=== PATIENT | male | born 1945 | race Caucasian/White ===

== ENCOUNTER 2017-07-08 13:05 | Inpatient (IN) | payer MEDICARE, BC ==
[~2017-07-08] VITALS: Ht 175.3 cm; Wt 63.1 kg
[2017-07-08] VITALS (16 sets, daily range): BP systolic 82–121; BP diastolic 51–75; PULSE 84–110; RESP 18–42; TEMP 93.9–98; O2SAT 98–100
[2017-07-08] MEDS ORDERED: SODIUM CHLOR 0.9% 1000 ML INJ 1,000 ML IV ONE (13:30)
--- NOTE | 2017-07-08 13:32 | PD ---
HPI Chief Complaint: Respiratory Symptoms Time Seen by Provider: 13:19 Travel History International Travel<30 days: No Contact w/Intl Traveler<30days: No Traveled to known affect area: No History of Present Illness HPI Patient is a 71-year-old male presenting to emergency evaluation of shortness of breath. Patient states the symptoms started this morning. He denies any other complaints other than increased fatigue. He does have a history of metastatic prostate cancer for which he has received palliative radiation. EMS placed patient on 2 L of O2, he was satting at 100%. Patient is tachypneic and was initially hypotensive with a BP of 88 systolic. He has no other significant past medical history. He does take oxycodone for pain, he is on Eliquis prophylactically. PFSH Past Medical History Cancer: Yes (metastatic prostate cancer) Implanted Vascular Access Dvce: Yes (right chest port) Social History Alcohol Use: No Tobacco Use: No (remote history) Substance Use: No Allergies-Medications (Allergen,Severity, Reaction): Coded Allergies: No Known Allergies (Unverified , 07/08/17) Reported Meds & Prescriptions Reported Meds & Active Scripts Active Reported Ondansetron (Ondansetron HCl) 8 Mg Tab 4 Mg PO TID Eliquis (Apixaban) 5 Mg Tab 5 Mg PO DAILY Prednisone 10 Mg Tab 10 Mg PO DAILY Oxycodone (Oxycodone HCl) 10 Mg Tab 10 Mg PO Q6H PRN Review of Systems Except as stated in HPI: all other systems reviewed are Neg General / Constitutional: No: Fever, Chills HENT: No: Headaches Cardiovascular: Positive: Tachycardia, Dyspnea on exertion, No: Chest Pain or Discomfort Respiratory: Positive: Shortness of Breath Gastrointestinal: No: Nausea, Vomiting, Abdominal Pain Musculoskeletal: No: Myalgias Neurologic: Positive: Weakness, No: Dizziness, Syncope, Focal Abnormalities Physical Exam Narrative GENERAL: Cachectic, well-developed, alert elderly male. SKIN: Warm and dry. HEAD: Atraumatic. Normocephalic. EYES: Pupils equal and round. No scleral icterus. No injection or drainage. Conjunctiva pallor noted ENT: No nasal bleeding or discharge. Mucous membranes pink and moist. NECK: Trachea midline. No JVD. CARDIOVASCULAR: Tachycardic. RESPIRATORY: Tachypneic, diaphragmatic breathing. Lungs are clear to auscultation bilaterally. GASTROINTESTINAL: Abdomen soft, non-tender, nondistended. Hepatic and splenic margins not palpable. MUSCULOSKELETAL: Extremities without clubbing, cyanosis, or edema. No obvious deformities. RECTAL EXAM: No masses or tenderness, stool is black. NEUROLOGICAL: Awake and alert. No obvious cranial nerve deficits. Motor grossly within normal limits. Five out of 5 muscle strength in the arms and legs. Normal speech. PSYCHIATRIC: Appropriate mood and affect; insight and judgment normal. Data Data Last Documented VS Vital Signs Date Time Temp Pulse Resp B/P (MAP) Pulse Ox O2 Delivery O2 Flow Rate FiO2 07/08/17 15:22 89 22 113/63 (80) 100 Nasal Cannula 2.00 07/08/17 13:16 95.1 Orders Orders Complete Blood Count With Diff (07/08/17 13:17) Comprehensive Metabolic Panel (07/08/17 13:17) B-Type Natriuretic Peptide (07/08/17 13:17) Magnesium (Mg) (07/08/17 13:17) Arterial Blood Gas (Abg) (07/08/17 13:17) Iv Access Insert/Monitor (07/08/17 13:17) Electrocardiogram (07/08/17 13:17) Ecg Monitoring (07/08/17 13:17) Oximetry (07/08/17 13:17) Oxygen Administration (07/08/17 13:17) Chest, Single Ap (07/08/17 13:17) Type And Screen (07/08/17 13:25) Sodium Chlor 0.9% 1000 Ml Inj (Ns 1000 M (07/08/17 13:30) Lactic Acid (07/08/17 13:58) Red Blood Cells (Rbc) (07/08/17 14:00) Platelet Pheresis (07/08/17 14:00) Blood Product Administration (07/08/17 14:00) Sodium Chloride 0.9% Flush (Ns Flush) (07/08/17 14:00) Act Partial Throm Time (Ptt) (07/08/17 14:07) Prothrombin Time / Inr (Pt) (07/08/17 14:07) Sodium Bicarbonate 8.4% Inj (Sodium Bica (07/08/17 14:30) Urinalysis - C+S If Indicated (07/08/17 14:23) Vancomycin Inj (Vancomycin Inj) (07/08/17 14:55) Piperacil-Tazo 4.5 Gm Premix (Zosyn 4.5 (07/08/17 14:55) Blood Culture (07/08/17 14:55) Fresh Frozen Plasma (Ffp) (07/08/17 14:55) Admit Order (Ed Use Only) (07/08/17 15:34) Labs Laboratory Tests Test 07/08/17 13:30 07/08/17 13:40 07/08/17 14:00 07/08/17 14:15 White Blood Count 18.2 TH/MM3 Red Blood Count 2.24 MIL/MM3 Hemoglobin 6.8 GM/DL Hematocrit 22.6 % Mean Corpuscular Volume 101.0 FL Mean Corpuscular Hemoglobin 30.2 PG Mean Corpuscular Hemoglobin Concent 29.9 % Red Cell Distribution Width 21.8 % Platelet Count 13 TH/MM3 Mean Platelet Volume 11.4 FL Neutrophils (%) (Auto) 87.2 % Lymphocytes (%) (Auto) 3.9 % Monocytes (%) (Auto) 8.5 % Eosinophils (%) (Auto) 0.3 % Basophils (%) (Auto) 0.1 % Neutrophils # (Auto) 15.9 TH/MM3 Lymphocytes # (Auto) 0.7 TH/MM3 Monocytes # (Auto) 1.6 TH/MM3 Eosinophils # (Auto) 0.1 TH/MM3 Basophils # (Auto) 0.0 TH/MM3 CBC Comment AUTO DIFF Differential Total Cells Counted 100 Neutrophils % (Manual) 80 % Band Neutrophils % 9 % Lymphocytes % 2 % Monocytes % 6 % Neutrophils # (Manual) 16.7 TH/MM3 Metamyelocytes 2 % Myelocytes 1 % Nucleated Red Blood Cells 6 /100 WBC Differential Comment FINAL DIFF MANUAL Platelet Estimate RARE Platelet Morphology Comment ENLARGED Polychromasia 3.2 % Acanthocytes OCC Red Cell Morphology Comment Blood Urea Nitrogen 61 MG/DL Creatinine 3.33 MG/DL Random Glucose 198 MG/DL Total Protein 5.4 GM/DL Albumin 2.4 GM/DL Calcium Level 7.7 MG/DL Magnesium Level 2.6 MG/DL Alkaline Phosphatase 309 U/L Aspartate Amino Transf (AST/SGOT) 143 U/L Alanine Aminotransferase (ALT/SGPT) 37 U/L Total Bilirubin 1.5 MG/DL Sodium Level 135 MEQ/L Potassium Level 4.7 MEQ/L Chloride Level 98 MEQ/L Carbon Dioxide Level 9.5 MEQ/L Anion Gap 28 MEQ/L Estimat Glomerular Filtration Rate 18 ML/MIN B-Type Natriuretic Peptide 116 PG/ML Blood Gas Puncture Site RT RADIAL Blood Gas Patient Temperature 98.6 Blood Gas HCO3 5 mmol/L Blood Gas Base Excess -21.1 mmol/L Blood Gas Oxygen Saturation 96 % Arterial Blood pH 7.29 Arterial Blood Partial Pressure CO2 11 mmHg Arterial Blood Partial Pressure O2 132 mmHG Arterial Blood Oxygen Content 9.3 Vol % Arterial Blood Carboxyhemoglobin 1.7 % Arterial Blood Methemoglobin 0.8 % Blood Gas Hemoglobin 6.7 G/DL Oxygen Delivery Device NASAL CANNULA Blood Gas Liter Flow 2 L/M Blood Gas Inspired Oxygen 28 % Prothrombin Time 23.2 SEC Prothromb Time International Ratio 2.0 RATIO Activated Partial Thromboplast Time 35.0 SEC Lactic Acid Level 14.8 mmol/L MDM Medical Decision Making Medical Screen Exam Complete: Yes Emergency Medical Condition: Yes Medical Record Reviewed: Yes Interpretation(s) Vital Signs Date Time Temp Pulse Resp B/P (MAP) Pulse Ox O2 Delivery O2 Flow Rate FiO2 07/08/17 13:16 99 42 98 Nasal Cannula 2.00 07/08/17 13:16 95.1 98 42 110/58 (75) 100 2.00 07/08/17 13:14 42 98 Differential Diagnosis Pulmonary embolism versus pneumonia versus anemia versus bleed versus metabolic abnormality versus other Narrative Course Patient arrived via EMS due to shortness of breath. He is tachypneic on arrival , he was initially hypotensive, he received 400 cc of saline en route. His blood pressure is 110 over 50s currently. Oxygenated on 2 L of oxygen. IV access is established, labs and imaging ordered and pending. Patient appeared pale on arrival, a Hemoccult was obtained and stool was positive for occult blood. Type and screen ordered. Patient was given 1 L of warm normal saline. EKG shows sinus rhythm with a rate of 99. presented to ED and stated pt received a blood transfusion on June 22 , at that time his Hgb was 8.2 per her report. He received 2 unit PRBC's then. His Hgb is currently 6.7 and may likely be lower after fluid hydration. Patients platelet count is 15, per it was 25 2 weeks ago. Pt will be transfused 2 units of PRBC's and 2 units of platelets now. ABG shows metabolic acidosis, 25 meq of sodium bicarb ordered. CXR read by radiologist shows subsegmental atelectasis in the left base, metastatic bone disease. WBC is elevated at 18.2 with left shift, and bandemia, no identified source of infection found however UA is pending. Temp 95.1 rectal on arrival BUN/Cr 61/3.33 BNP 116 Lactic acid VS are stable currently. Discussed all findings and plan of care with my attending physician. Discussed critical nature of patients illness with family. Pt has a living will with him. They will discuss further with facilities engineer. Dr. Fulton was informed of findings. He requested blood be initiated stat. Admit orders placed. Sepsis Criteria SIRS Criteria (2 or more): Temp > 100.9 or < 96.8, Heart rate over 90, RR > 20 or PaCO2 < 32, WBC > 55625, < 4000 or > 10% bands Severe Sepsis (+one): Hypotension, Acute Oliguria/Renal Failure Septic Shock Criteria: Lactic acid >=4 Multiple Organ Dysfunction Syn: Evidence -2 organs failing Criteria Outcome: Meets septic shock criteria, Meets multiple organ dys. criteria Diagnosis Primary Impression: Sepsis Qualified Codes: A41.9 - Sepsis, unspecified organism Additional Impressions: Anemia Qualified Codes: D64.9 - Anemia, unspecified GI bleed Qualified Codes: K92.2 - Gastrointestinal hemorrhage, unspecified Thrombocytopenia ARF (acute renal failure) Qualified Codes: N17.9 - Acute kidney failure, unspecified Metabolic acidosis Admitting Information Admitting Physician Requests: Admit Condition: Stable Ciara Patel Jul 08, 2017 13:32
[2017-07-08] MEDS ORDERED: PRED10 PO (13:34)
[2017-07-08] MEDS ORDERED: APIX5TAB PO (13:34)
[2017-07-08] MEDS ORDERED: OXYC-395 PO (13:34)
[2017-07-08] MEDS ORDERED: ONDA1TAB17 PO (13:34)
[2017-07-08 13:56] LABS: AUTOMATED NEUTROPHIL # 15.9 TH/MM3 (1.8-7.7); BASOPHIL % 0.1 % (0.0-2.0); EOSINOPHIL # 0.1 TH/MM3 (0-0.4); EOSINOPHIL % 0.3 % (0.0-4.0); LYMPH % 3.9 % (9.0-44.0); LYMPHOCYTE # 0.7 TH/MM3 (1.0-4.8); MEAN CORPUSCULAR HEMOGLOBIN 30.2 PG (27.0-34.0); MONO % 8.5 % (0.0-8.0); NEUT % 87.2 % (16.0-70.0); RED BLOOD COUNT 2.24 MIL/MM3 (4.50-5.90); RED CELL DISTRIBUTION WIDTH 21.8 % (11.6-17.2); WHITE BLOOD COUNT 18.2 TH/MM3 (4.0-11.0)
[2017-07-08 13:57] LABS: BLOOD GAS BASE EXCESS -21.1 mmol/L (-2-2); BLOOD GAS CARBOXYHEMOGLOBIN 1.7 % (0-4); BLOOD GAS HCO3 5 mmol/L (22-26); BLOOD GAS METHEMOGLOBIN 0.8 % (0-2); BLOOD GAS O2 HGB SATURATION 96 % (90-100); BLOOD GAS OXYGEN CONTENT 9.3 Vol % (12.0-20.0); BLOOD GAS PCO2 11 mmHg (38-42); BLOOD GAS PO2 132 mmHG (61-120); BLOOD GAS TOTAL HGB 6.7 G/DL (12.0-16.0); CRITICAL VALUE YES; DRAW SITE RT RADIAL; FIO2 28 %; LITER FLOW 2 L/M; NUMBER OF ARTERIAL PUNCTURES 1; OXYGEN DEVICE NASAL CANNULA; TEMP CORR TO 98.6; ULNAR PULSE PRESENT
[2017-07-08 13:58] LABS: STAT YES
[2017-07-08 13:59] LABS: HEMO FLAGS AUTO DIFF; MEAN CORPUSCULAR HGB CONC 29.9 % (32.0-36.0)
[2017-07-08] MEDS ORDERED: SODIUM CHLORIDE 0.9% FLUSH 10 ML FLUSH IVF PRN (14:00)
[2017-07-08 14:01] LABS: HEMATOCRIT 22.6 % (39.0-51.0); PLATELET COUNT 13 TH/MM3 (150-450)
[2017-07-08 14:14] LABS: ALT (GPT) 37 U/L (12-78); ANION GAP 28 MEQ/L (5-15); AST (GOT) 143 U/L (15-37); BICARBONATE 9.5 MEQ/L (21.0-32.0); BLOOD UREA NITROGEN 61 MG/DL (7-18); CHLORIDE 98 MEQ/L (98-107); GLOMERULAR FILTRATION RATE 18 ML/MIN (>89); MAGNESIUM 2.6 MG/DL (1.5-2.5); POTASSIUM 4.7 MEQ/L (3.5-5.1); SODIUM (NA) 135 MEQ/L (136-145)
[2017-07-08 14:17] LABS: ALKALINE PHOSPHATASE 309 U/L (45-117); TOTAL BILIRUBIN ADULT 1.5 MG/DL (0.2-1.0)
--- NOTE | 2017-07-08 14:22 | PD ---
Data Data Last Documented VS Vital Signs Date Time Temp Pulse Resp B/P (MAP) Pulse Ox O2 Delivery O2 Flow Rate FiO2 07/08/17 15:22 89 22 113/63 (80) 100 Nasal Cannula 2.00 07/08/17 13:16 95.1 Orders Orders Complete Blood Count With Diff (07/08/17 13:17) Comprehensive Metabolic Panel (07/08/17 13:17) B-Type Natriuretic Peptide (07/08/17 13:17) Magnesium (Mg) (07/08/17 13:17) Arterial Blood Gas (Abg) (07/08/17 13:17) Iv Access Insert/Monitor (07/08/17 13:17) Electrocardiogram (07/08/17 13:17) Ecg Monitoring (07/08/17 13:17) Oximetry (07/08/17 13:17) Oxygen Administration (07/08/17 13:17) Chest, Single Ap (07/08/17 13:17) Type And Screen (07/08/17 13:25) Sodium Chlor 0.9% 1000 Ml Inj (Ns 1000 M (07/08/17 13:30) Lactic Acid (07/08/17 13:58) Red Blood Cells (Rbc) (07/08/17 14:00) Platelet Pheresis (07/08/17 14:00) Blood Product Administration (07/08/17 14:00) Sodium Chloride 0.9% Flush (Ns Flush) (07/08/17 14:00) Act Partial Throm Time (Ptt) (07/08/17 14:07) Prothrombin Time / Inr (Pt) (07/08/17 14:07) Sodium Bicarbonate 8.4% Inj (Sodium Bica (07/08/17 14:30) Urinalysis - C+S If Indicated (07/08/17 14:23) Vancomycin Inj (Vancomycin Inj) (07/08/17 14:55) Piperacil-Tazo 4.5 Gm Premix (Zosyn 4.5 (07/08/17 14:55) Blood Culture (07/08/17 14:55) Fresh Frozen Plasma (Ffp) (07/08/17 14:55) Admit Order (Ed Use Only) (07/08/17 15:34) Labs Laboratory Tests Test 07/08/17 13:30 07/08/17 13:40 07/08/17 14:00 07/08/17 14:15 White Blood Count 18.2 TH/MM3 Red Blood Count 2.24 MIL/MM3 Hemoglobin 6.8 GM/DL Hematocrit 22.6 % Mean Corpuscular Volume 101.0 FL Mean Corpuscular Hemoglobin 30.2 PG Mean Corpuscular Hemoglobin Concent 29.9 % Red Cell Distribution Width 21.8 % Platelet Count 13 TH/MM3 Mean Platelet Volume 11.4 FL Neutrophils (%) (Auto) 87.2 % Lymphocytes (%) (Auto) 3.9 % Monocytes (%) (Auto) 8.5 % Eosinophils (%) (Auto) 0.3 % Basophils (%) (Auto) 0.1 % Neutrophils # (Auto) 15.9 TH/MM3 Lymphocytes # (Auto) 0.7 TH/MM3 Monocytes # (Auto) 1.6 TH/MM3 Eosinophils # (Auto) 0.1 TH/MM3 Basophils # (Auto) 0.0 TH/MM3 CBC Comment AUTO DIFF Differential Total Cells Counted 100 Neutrophils % (Manual) 80 % Band Neutrophils % 9 % Lymphocytes % 2 % Monocytes % 6 % Neutrophils # (Manual) 16.7 TH/MM3 Metamyelocytes 2 % Myelocytes 1 % Nucleated Red Blood Cells 6 /100 WBC Differential Comment FINAL DIFF MANUAL Platelet Estimate RARE Platelet Morphology Comment ENLARGED Polychromasia 3.2 % Acanthocytes OCC Red Cell Morphology Comment Blood Urea Nitrogen 61 MG/DL Creatinine 3.33 MG/DL Random Glucose 198 MG/DL Total Protein 5.4 GM/DL Albumin 2.4 GM/DL Calcium Level 7.7 MG/DL Magnesium Level 2.6 MG/DL Alkaline Phosphatase 309 U/L Aspartate Amino Transf (AST/SGOT) 143 U/L Alanine Aminotransferase (ALT/SGPT) 37 U/L Total Bilirubin 1.5 MG/DL Sodium Level 135 MEQ/L Potassium Level 4.7 MEQ/L Chloride Level 98 MEQ/L Carbon Dioxide Level 9.5 MEQ/L Anion Gap 28 MEQ/L Estimat Glomerular Filtration Rate 18 ML/MIN B-Type Natriuretic Peptide 116 PG/ML Blood Gas Puncture Site RT RADIAL Blood Gas Patient Temperature 98.6 Blood Gas HCO3 5 mmol/L Blood Gas Base Excess -21.1 mmol/L Blood Gas Oxygen Saturation 96 % Arterial Blood pH 7.29 Arterial Blood Partial Pressure CO2 11 mmHg Arterial Blood Partial Pressure O2 132 mmHG Arterial Blood Oxygen Content 9.3 Vol % Arterial Blood Carboxyhemoglobin 1.7 % Arterial Blood Methemoglobin 0.8 % Blood Gas Hemoglobin 6.7 G/DL Oxygen Delivery Device NASAL CANNULA Blood Gas Liter Flow 2 L/M Blood Gas Inspired Oxygen 28 % Prothrombin Time 23.2 SEC Prothromb Time International Ratio 2.0 RATIO Activated Partial Thromboplast Time 35.0 SEC Lactic Acid Level 14.8 mmol/L MDM Supervised Visit with LYLE: Yes Narrative Course I, Dr. Zelaya, have reviewed the advance practice practitioner's documentation and am in agreement, met with the patient face to face, made the diagnosis, and the medical decision making was done by me. *My assessment and Findings: Patient is a 71-year-old male who appears much older than stated age with very little metabolic and nutritional reserve presents with metabolic acidosis lactic acidosis thrombocytopenia which is severe as well as severe anemia. He does have some blood in his stool. Was on blood thinners and will be given FFP platelets and RBCs. Patient was discussed with Dr. Fulton by my PA, I also discussed with Dr. Fulton the patient is critically ill and may be a hospice candidate as well. I broached the subject with the family and does have a living well but remained full code at this time. He is critically ill. Prognosis guarded. Diagnosis Primary Impression: Anemia Qualified Codes: D64.9 - Anemia, unspecified Additional Impressions: ARF (acute renal failure) Qualified Codes: N17.9 - Acute kidney failure, unspecified GI bleed Qualified Codes: K92.2 - Gastrointestinal hemorrhage, unspecified Metabolic acidosis Sepsis Qualified Codes: A41.9 - Sepsis, unspecified organism Thrombocytopenia Admitting Information Admitting Physician Requests: Admit Condition: Critical Alistair Zelaya MD Jul 08, 2017 14:22
--- NOTE | 2017-07-08 14:24 | RADRPT ---
EXAM DATE/TIME: 07/08/2017 14:01 [facility] COMPARISON: No previous studies available for comparison. INDICATIONS : Shortness of breath. MEDICAL HISTORY : Carcinoma, prostatic. Carcinoma, bone. SURGICAL HISTORY : Port placement. ENCOUNTER: Initial ACUITY: 3 days PAIN SCORE: 0/10 LOCATION: Bilateral chest FINDINGS: The cardiac silhouette is enlarged in transverse diameter. There is subsegmental atelectasis in the l eft base. [id number] is in place via right internal jugular approach with its tip in the superior vena cava. There is sclerosis of the ribs bilaterally with pathologic fractures characteristic of met astatic prostate carcinoma. CONCLUSION: 1. Subsegmental atelectasis left base. 2. Osseous metastatic disease Montrell Dc MD on July 08, 2017 at 14:21 Board Certified Radiologist. This report was verified electronically.
[2017-07-08 14:25] LABS: BANDS 9 % (0-6); CORRECTED NUCLEATED RBC 6 /100 WBC (0-0); METAMYELOCYTES 2 % (0-1); MYELOCYTES 1 % (0-0); NEUTROPHIL # MANUAL DIFF 16.7 TH/MM3 (1.8-7.7); POLYS (SEG NEUTROPHILS) 80 % (16-70); WBC DIFF SAMPLE 100
[2017-07-08 14:26] LABS: PLATELET ESTIMATE SMEAR RARE (NORMAL)
[2017-07-08 14:28] LABS: POLYCHROMASIA 3.2 % (0.0-1.9)
[2017-07-08 14:29] LABS: ACANTHOCYTES OCC (NORMAL); PLATELET MORPHOLOGY ENLARGED (NORMAL); SCAN/DIFF FINAL DIFF MANUAL
[2017-07-08] MEDS ORDERED: SODIUM BICARBONATE 8.4% INJ 50 MEQ/50 ML SYR IV PUSH ONE (14:30)
[2017-07-08 14:39] LABS: PROTHROMBIN TIME - PATIENT 23.2 SEC (9.8-11.6)
[2017-07-08] MEDS ORDERED: PIPERACIL-TAZO 4.5 GM PREMIX 100 ML IV STA (14:55)
[2017-07-08] MEDS ORDERED: VANCOMYCIN INJ 1,000 MG in SODIUM CHLOR 0.9% 250 ML INJ 250 ML IV STA (14:55)
[2017-07-08] MEDS ORDERED: ONDANSETRON HCL 4 MG/2 ML VIAL IV PUSH PRN (16:30)
[2017-07-08] MEDS ORDERED: LACTULOSE SYRUP 20 GM/30 ML CUP PO PRN (16:30)
[2017-07-08] MEDS ORDERED: MAGNESIUM HYDROXIDE SUSP 30 ML CUP PO PRN (16:30)
[2017-07-08] MEDS ORDERED: BISACODYL 10 MG SUPP RECTAL PRN (16:30)
[2017-07-08] MEDS ORDERED: SENNOSIDES 8.6 MG TAB PO PRN (16:30)
[2017-07-08] MEDS ORDERED: RESP: ALBUTEROL 2.5 MG/IPRATROPIUM 0.5 MG NEB (PRN) INH (16:30)
[2017-07-08] MEDS ORDERED: SODIUM CHLORIDE 0.9% FLUSH 10 ML FLUSH IV FLUSH PRN (16:30)
[2017-07-08] MEDS ORDERED: ACETAMINOPHEN 325 MG TAB PO PRN (16:30)
[2017-07-08] MEDS ORDERED: CHLORHEXIDINE GLUCONATE 2 % 1 PACK (2 CLOTHS) TOP PRN (16:30)
[2017-07-08] MEDS ORDERED: MISCELLANEOUS NURSING INFORMATION XX SCH (16:30)
[2017-07-08] MEDS ORDERED: SODIUM BICARBONATE 8.4% SOLN 50 MEQ/50 ML VIAL IV ONE (16:45)
--- NOTE | 2017-07-08 17:10 | HHI.HP ---
HPI Service Critical Care Medicine Primary Care Physician Elizabeth Carney MD Admission Diagnosis SEPSIS, ANEMIA, THROMBOCYTOPENIA, ARF Diagnosis: Chief Complaint: shortness of breath Travel History International Travel<30 Days: No Contact w/Intl Traveler <30 Da: No Traveled to Known Affected Are: No Sepsis Criteria SIRS Criteria (2 or more): Temp > 100.9 or < 96.8, RR > 20 or PaCO2 < 32, WBC > 49215, < 4000 or > 10% bands Severe Sepsis (+one): Organ Dysfunction, Lactate >2 Criteria Outcome: Meets severe sepsis criteria History of Present Illness HPI 71-year-old male with a medical history significant for metastatic prostate cancer who was brought to the ER via EMS with shortness of breath that started this morning. He reportedly has been having progressive fatigue over the last few months. Initially on arrival in the ER he was tachypneic with a systolic blood pressure of 88mm Hg. He was transfused 2 units PRBCs a few months ago by his oncologist who practices in [place]. Patient was evaluated in the ER following his arrival and was noted to have a hemoglobin of 6.7, lactic acid of 14.8 with metabolic acidosis and elevated BUN/creatinine. He received 1 L normal saline bolus in the ER and was ordered 2 units PRBCs as well as platelets and FFP which has still not been transfused. Patient was accepted for admission by critical care medicine service. When I evaluated the patient in the ER he was laying in the ER stretcher and appeared in no acute distress on nasal cannula maintaining O2 sat 100% on 2 L with a heart rate of 89 and blood pressure 130/63. He was confused and could not tell me if he was in the hospital and thought he was in [place] and did not know the year. History was obtained by discussion with patient's as well as his daughter at the bedside. He reportedly has had prostate cancer since 1 and has undergone treatment including radiation and was also evaluated at [facility] and given some chemotherapy which she did not tolerate well and which resulted in him dropping his blood counts about 3 months ago. He recently followed up with his oncologist in [place] and and was informed regarding poor prognosis with probable life expectancy of 6 months or so. He was diagnosed with a left lower extremity DVT and has been on Eliquis for a few months. His has noticed some blood in the urine recently. Patient denies any fever or chills or abdominal pain currently. Denies any nausea vomiting or diarrhea. PFSH Past Medical History Cancer: Yes (metastatic prostate cancer) Implanted Vascular Access Dvce: Yes (right chest port) Social History Alcohol Use: No Tobacco Use: No (remote history) Substance Use: No Allergies-Medications Allergies-Medications (Allergen,Severity, Reaction): Coded Allergies: No Known Allergies (Unverified , 07/08/17) Reported Meds & Prescriptions Reported Meds & Active Scripts Active Reported Ondansetron (Ondansetron HCl) 8 Mg Tab 4 Mg PO TID Eliquis (Apixaban) 5 Mg Tab 5 Mg PO DAILY Prednisone 10 Mg Tab 10 Mg PO DAILY Oxycodone (Oxycodone HCl) 10 Mg Tab 10 Mg PO Q6H PRN ROS Review of Systems Except as stated in HPI: all other systems reviewed are Neg General / Constitutional: No: Fever, Chills HENT: No: Headaches Cardiovascular: Positive: Tachycardia, Dyspnea on exertion, No: Chest Pain or Discomfort Respiratory: Positive: Shortness of Breath Gastrointestinal: No: Nausea, Vomiting, Abdominal Pain Musculoskeletal: No: Myalgias Neurologic: Positive: Weakness, No: Dizziness, Syncope, Focal Abnormalities Physical Exam Vital Signs Vital Signs Date Time Temp Pulse Resp B/P (MAP) Pulse Ox O2 Delivery O2 Flow Rate FiO2 07/08/17 15:22 89 22 113/63 (80) 100 Nasal Cannula 2.00 07/08/17 13:27 98 Nasal Cannula 2.00 07/08/17 13:27 (75) Nasal Cannula 2.00 07/08/17 13:16 99 42 98 Nasal Cannula 2.00 07/08/17 13:16 95.1 98 42 110/58 (75) 100 2.00 07/08/17 13:14 42 98 Physical Exam Narrative GENERAL: Cachectic, well-developed, alert elderly male. SKIN: Warm and dry. HEAD: Atraumatic. Normocephalic. EYES: Pupils equal and round. Pallor present. No scleral icterus. No injection or drainage. Conjunctiva pallor noted ENT: No nasal bleeding or discharge. Mucous membranes pink and moist. NECK: Trachea midline. No JVD. CARDIOVASCULAR: Tachycardic. RESPIRATORY: Good air entry bilaterally no wheezing or crackles. Not using accessory muscles of respiration currently GASTROINTESTINAL: Abdomen soft, non-tender, nondistended. Hepatic and splenic margins not palpable. MUSCULOSKELETAL: Extremities without clubbing, cyanosis, or edema. No obvious deformities. RECTAL EXAM: No masses or tenderness, stool is black. NEUROLOGICAL: Awake and alert. Could identify his by name however could not give me current location and did not know the year. No obvious cranial nerve deficits. Motor grossly within normal limits. Five out of 5 muscle strength in the arms and legs. Normal speech. PSYCHIATRIC: Appropriate mood and affect Laboratory Laboratory Tests Test 07/08/17 13:30 07/08/17 13:40 07/08/17 14:00 07/08/17 14:15 White Blood Count 18.2 Red Blood Count 2.24 Hemoglobin 6.8 Hematocrit 22.6 Mean Corpuscular Volume 101.0 Mean Corpuscular Hemoglobin 30.2 Mean Corpuscular Hemoglobin Concent 29.9 Red Cell Distribution Width 21.8 Platelet Count 13 Mean Platelet Volume 11.4 Neutrophils (%) (Auto) 87.2 Lymphocytes (%) (Auto) 3.9 Monocytes (%) (Auto) 8.5 Eosinophils (%) (Auto) 0.3 Basophils (%) (Auto) 0.1 Neutrophils # (Auto) 15.9 Lymphocytes # (Auto) 0.7 Monocytes # (Auto) 1.6 Eosinophils # (Auto) 0.1 Basophils # (Auto) 0.0 CBC Comment AUTO DIFF Differential Total Cells Counted 100 Neutrophils % (Manual) 80 Band Neutrophils % 9 Lymphocytes % 2 Monocytes % 6 Neutrophils # (Manual) 16.7 Metamyelocytes 2 Myelocytes 1 Nucleated Red Blood Cells 6 Differential Comment FINAL DIFF MANUAL Platelet Estimate RARE Platelet Morphology Comment ENLARGED Polychromasia 3.2 Acanthocytes OCC Red Cell Morphology Comment Blood Urea Nitrogen 61 Creatinine 3.33 Random Glucose 198 Total Protein 5.4 Albumin 2.4 Calcium Level 7.7 Magnesium Level 2.6 Alkaline Phosphatase 309 Aspartate Amino Transf (AST/SGOT) 143 Alanine Aminotransferase (ALT/SGPT) 37 Total Bilirubin 1.5 Sodium Level 135 Potassium Level 4.7 Chloride Level 98 Carbon Dioxide Level 9.5 Anion Gap 28 Estimat Glomerular Filtration Rate 18 B-Type Natriuretic Peptide 116 Blood Gas Puncture Site RT RADIAL Blood Gas Patient Temperature 98.6 Blood Gas HCO3 5 Blood Gas Base Excess -21.1 Blood Gas Oxygen Saturation 96 Arterial Blood pH 7.29 Arterial Blood Partial Pressure CO2 11 Arterial Blood Partial Pressure O2 132 Arterial Blood Oxygen Content 9.3 Arterial Blood Carboxyhemoglobin 1.7 Arterial Blood Methemoglobin 0.8 Blood Gas Hemoglobin 6.7 Oxygen Delivery Device NASAL CANNULA Blood Gas Liter Flow 2 Blood Gas Inspired Oxygen 28 Prothrombin Time 23.2 Prothromb Time International Ratio 2.0 Activated Partial Thromboplast Time 35.0 Lactic Acid Level 14.8 Date/Time Source Procedure Growth Status 07/08/17 15:15 Blood Peripheral Aerobic Blood Culture Pending Received 07/08/17 15:15 Blood Peripheral Anaerobic Blood Culture Pending Received Result Diagram: 07/08/17 1330 07/08/17 1330 Imaging Last Impressions Chest X-Ray 07/08/17 1317 Signed Impressions: Service Date/Time: Saturday, July 08, 2017 14:01 - CONCLUSION: 1. Subsegmental atelectasis left base. 2. Osseous metastatic disease Montrell Dc MD Septic Shock Reassessment Heart: Regular rate and rhythm Lungs: Clear Skin: Warm Peripheral Pulses: Bounding Right Radial Capillary Refill: Sluggish Caprini VTE Risk Assessment Caprini VTE Risk Assessment: Mod/High Risk (score >= 2) VTE Pharm Contraindication: Thrombocytopenia(<50) Caprini Risk Assessment Model Point Value = 1 Point Value = 2 Point Value = 3 Point Value = 5 Age 41-60 Minor surgery BMI > 25 kg/m2 Swollen legs Varicose veins or History of unexplained or recurrent spontaneous Oral contraceptives or hormone replacement Sepsis (< 1 month) Serious lung disease, including pneumonia (< 1 month) Abnormal pulmonary function Acute myocardial infarction Congestive heart failure (< 1 month) History of inflammatory bowel disease Medical patient at bed rest Age 61-74 Arthroscopic surgery Major open surgery (> 45 min) Laparoscopic surgery (> 45 min) Malignancy Confined to bed (> 72 hours) Immobilizing plaster cast Central venous access Age >= 75 History of VTE Family history of VTE Factor V Leiden Prothrombin [id number] Lupus anticoagulant Anticardiolipin antibodies Elevated serum homocysteine Heparin-induced thrombocytopenia Other congenital or acquired thrombophilia Stroke (< 1 month) Elective arthroplasty Hip, pelvis, or leg fracture Acute spinal cord injury (< 1 month) Prophylaxis Regimen Total Risk Factor Score Risk Level Prophylaxis Regimen 0-1 Low Early ambulation 2 Moderate Order ONE of the following: *Sequential Compression Device (SCD) *Heparin 5000 units SQ BID 3-4 Higher Order ONE of the following medications: *Heparin 5000 units SQ TID *Enoxaparin/Lovenox 40 mg SQ daily (WT < 150 kg, CrCl > 30 mL/min) *Enoxaparin/Lovenox 30 mg SQ daily (WT < 150 kg, CrCl > 10-29 mL/min) *Enoxaparin/Lovenox 30 mg SQ BID (WT < 150 kg, CrCl > 30 mL/min) AND/OR *Sequential Compression Device (SCD) 5 or more Highest Order ONE of the following medications: *Heparin 5000 units SQ TID (Preferred with Epidurals) *Enoxaparin/Lovenox 40 mg SQ daily (WT < 150 kg, CrCl > 30 mL/min) *Enoxaparin/Lovenox 30 mg SQ daily (WT < 150 kg, CrCl > 10-29 mL/min) *Enoxaparin/Lovenox 30 mg SQ BID (WT < 150 kg, CrCl > 30 mL/min) AND *Sequential Compression Device (SCD) Assessment and Plan Assessment and Plan 71-year-old male with: Shortness of breath Severe anemia Thrombocytopenia Metastatic prostate cancer Lactic acidosis Acute kidney injury Leukocytosis Suspected severe sepsis History of DVT left lower extremity Plan: Neuro: Follow neuro status, avoid sedatives and narcotics. We will obtain CT head without contrast in view of disorientation to evaluate for metastatic disease. Avoid sedatives. Patient uses oxycodone at home however not in any discomfort currently. Will resume if needed. Cardiovascular: IV hydration, watch for hypotension. Pulmonary: Supplemental O2. Bronchodilators as needed. GI/liver: We will initiate by mouth diet as tolerated following CT abdomen pelvis. Renal/: Strict intake output, monitor and replete electrolites, follow BUN/ creatinine. Check UA and urine cultures if indicated. CT abdomen pelvis to evaluate for hydronephrosis and further evaluate metastatic disease. Ordered bicarbonate drip in view of metabolic acidosis/lactic acidosis. Follow serial lactate levels. ID: Follow-up blood cultures, UA and urine cultures pending. Received empiric vancomycin and Zosyn in the ER. We will continue Zosyn for empiric antibiotic coverage. Heme-onc: Awaiting 2 units PRBCs, 2 units platelets and 1 unit FFP which have been ordered in the ER as stat. Hold Eliquis in view of severe anemia and thrombocytopenia. Heme-onc consulted for metastatic prostate cancer. Follow CBC Endocrine: Watch for hyperglycemia. SSI for glycemic control if needed. Patient has been on oral prednisone therapy and we will initiate stress dose hydrocortisone during acute illness to avoid hemodynamic instability. Prophylaxis: PPI/SCDs. No heparin or Lovenox in view of severe thrombocytopenia and anemia. Patient appears to be declining rapidly over the last 6 months per family. I did discuss CODE STATUS and long-term goals of therapy. Patient has a living will, patient's at this time wishes to continue full CODE STATUS however is open to having further discussions with palliative care service as well as possible hospice. Condition critical Time spent on critical care excluding procedures 60 minutes Pablo Fulton MD Jul 08, 2017 17:10
--- NOTE | 2017-07-08 17:35 | RADRPT ---
EXAM DATE/TIME: 07/08/2017 17:09 [facility] COMPARISON: CT SIMULATION, February 13, 2017, 10:38. INDICATIONS : Abdomen pain. Evaluate fro hydronephorsis ORAL CONTRAST: No oral contrast ingested. RADIATION DOSE: 9.96 CTDIvol (mGy) MEDICAL HISTORY : Metastatic disease. Carcinoma, prostate. SURGICAL HISTORY : None. ENCOUNTER: Initial ACUITY: 1 day PAIN SCALE: 5/10 LOCATION: Bilateral abdomen TECHNIQUE: Volumetric scanning of the abdomen and pelvis was performed. Using automated exposure control and ad justment of the mA and/or kV according to patient size, radiation dose was kept as low as reasonably achievable to obtain optimal diagnostic quality images. DICOM format image data is available [facility] for review and comparison. FINDINGS: Imaging through the lower chest demonstrates a 2.7 x 4.0 cm pleural-based mass involving the posterio r aspect of the right lung base. In addition, there is a 1.6 cm mass just anterior to the pericardium . The appearance of the liver, spleen, pancreas and adrenal glands is within normal limits. There is mo derate/severe hydronephrosis on the left and mild hydronephrosis on the right.. There is thinning of the renal cortex bilaterally. There is extensive retroperitoneal lymphadenopathy with nodes measuring up to 4.0 x 3.5 cm. This exte nds throughout the retroperitoneum down to the level of the iliac bifurcation. At the bifurcation, th ere is a 5.0 x 5.0 cm duncan mass on the left. There are scattered, abnormal nodes distributed through out the external iliac duncan chain as well. The largest is seen on the right and measures 3.0 x 1.9 c m. These would be consistent with widespread metastatic disease. No free intraperitoneal air is present. There is no free fluid. No findings to indicate bowel obstruc tion are present. Bone windowed images demonstrate extensive mixed lytic and sclerotic bony lesion suggesting widesprea d metastatic disease to bone. CONCLUSION: 1. There is moderate hydronephrosis on the left. There is mild hydronephrosis on the right. 2. There is extensive retroperitoneal lymphadenopathy. 3. Extensive iliac and right inguinal adenopathy. 4. Widespread bony metastatic disease. 5. 1.6 cm pericardial node. 6. 2.7 x 4.0 cm pleural-based mass on the right. 7. COPD changes within the lung bases. Andrey Trejo MD on July 08, 2017 at 17:29 Board Certified Radiologist. This report was verified electronically.
--- NOTE | 2017-07-08 17:36 | RADRPT ---
EXAM DATE/TIME: 07/08/2017 17:10 [facility] COMPARISON: CT ABDOMEN & PELVIS W/O CONTRAST, July 08, 2017, 17:09. INDICATIONS : Altered mental status. RADIATION DOSE: 69.15 CTDIvol (mGy) MEDICAL HISTORY : Metastatic disease. Carcinoma, prostate. SURGICAL HISTORY : None. ENCOUNTER: Initial ACUITY: 1 day PAIN SCALE: 0/10 LOCATION: cranial TECHNIQUE: Multiple contiguous axial images were obtained of the head. Using automated exposure control and adj ustment of the mA and/or kV according to patient size, radiation dose was kept as low as reasonably a chievable to obtain optimal diagnostic quality images. DICOM format image data is available electro nically for review and comparison. FINDINGS: CEREBRUM: The ventricles are normal for age. No evidence of midline shift, mass lesion, hemorrhage or acute in farction. No extra-axial fluid collections are seen. POSTERIOR FOSSA: The cerebellum and brainstem are intact. The 4th ventricle is midline. The cerebellopontine angle i s unremarkable. EXTRACRANIAL: The visualized portion of the orbits is intact. SKULL: The calvaria is intact. No evidence of skull fracture. CONCLUSION: 1. No acute intracranial abnormality. Andrey Trejo MD on July 08, 2017 at 17:34 Board Certified Radiologist. This report was verified electronically.
[2017-07-08] MEDS: PANTOPRAZOLE SODIUM 40 MG VIAL IV PUSH SCH (17:43)
[2017-07-08] MEDS: SODIUM BICARBONATE 8.4% INJ 150 MEQ in DEXTROSE 5% IN WATE 1000ML INJ 1,000 ML IV SCH ×2 (17:44)
[2017-07-08] MEDS ORDERED: PIPERACIL-TAZO 2.25 GM PREMIX 50 ML IV SCH (20:00)
[2017-07-08] MEDS: DOCUSATE SODIUM 50 MG/SENNA 8.6 MG TAB PO SCH (20:03)
[2017-07-08] MEDS: HYDROCORTISONE SOD SUCCINATE 100 MG VIAL IV PUSH SCH ×2 (20:03→22:48)
[2017-07-08] MEDS: SODIUM CHLORIDE 0.9% FLUSH 10 ML FLUSH IV FLUSH SCH (20:03)
[2017-07-08 22:26] LABS: BACTERIA, URINE MANY /hpf; BLOOD, URINE LARGE (NEG); COMMENT (UR) CULTURE INDICATED; CULTURE IF INDICATED CULTURE INDICATED; GLUCOSE,URINE NEG (NEG); KETONE, URINE TRACE mg/dL (NEG); NITRITE,URINE NEG (NEG); PH, URINE 5.5 (5.0-8.5); SQUAMOUS EPITHELIAL CELL URINE 1 /hpf (0-5); URINE COLOR YELLOW (YELLW/STRAW)
[2017-07-08] MEDS: PIPERACIL-TAZO 2.25 GM PREMIX 50 ML IV SCH (22:48)
[2017-07-08] MEDS ORDERED: LIDOCAINE HCL 2% JELLY 5 ML SYRINGE TOPICAL ONE (23:00)
[2017-07-09] VITALS (14 sets, daily range): BP systolic 76–131; BP diastolic 52–67; PULSE 94–116; RESP 18–32; TEMP 97.1–99.2; O2SAT 95–100
[2017-07-09] MEDS ORDERED: TERBUTALINE INJ 1 MG/ML AMP SQ PRN (00:15)
[2017-07-09] MEDS ORDERED: SODIUM CHLOR 0.9% 1000 ML INJ 1,000 ML IV ONE (00:15)
[2017-07-09 00:17] LABS: HEMATOCRIT 25.7 % (39.0-51.0); MEAN CELL VOLUME 89.1 FL (80.0-100.0); MEAN CORPUSCULAR HGB CONC 33.7 % (32.0-36.0); PLATELET COUNT 50 TH/MM3 (150-450); RED BLOOD COUNT 2.89 MIL/MM3 (4.50-5.90); WHITE BLOOD COUNT 12.1 TH/MM3 (4.0-11.0)
[2017-07-09 00:18] LABS: REVIEW FLAG FINAL
[2017-07-09] MEDS: NOREPINEPHRINE-DEXTROSE DRIP 250 ML IV PRN ×2 (00:23→13:12)
[2017-07-09 00:40] LABS: POTASSIUM 3.5 MEQ/L (3.5-5.1)
[2017-07-09 00:52] LABS: CALCIUM-PROTEIN CORRECTED 7.8 MG/DL (8.5-10.1)
[2017-07-09] MEDS: SODIUM BICARBONATE 8.4% INJ 150 MEQ in DEXTROSE 5% IN WATE 1000ML INJ 1,000 ML IV SCH ×4 (03:26→15:29)
[2017-07-09] MEDS: CHLORHEXIDINE GLUCONATE 2 % 1 PACK (2 CLOTHS) TOP SCH (03:27)
[2017-07-09] MEDS ORDERED: SODIUM CHLORID 0.9% 500 ML INJ 500 ML IV ONE (03:45)
[2017-07-09] MEDS: HYDROCORTISONE SOD SUCCINATE 100 MG VIAL IV PUSH SCH ×4 (04:40→23:19)
--- NOTE | 2017-07-09 04:41 | PD.PROCEDR ---
Procedure Note Procedure DATE: 07/08/17. (Noted entered later after midnight 07/09 but service was from ) ATTEMPTED URINARY CATHETER INSERTION INDICATION: Septic shock, UTI, LONI, Hydronephrosis. Need catheter due to urinary obstruction and for monitoring UOP in setting of septic shock. DESCRIPTION OF THE ACCOUNTING METHODS ANALYST had attempted gomez catheter placement unsuccessfully. Bladder scan with 300 urine. Patient unable to void. There was blood at the urethral meatus. Instilled 5 mL of 2% lidocaine jelly. Patient is hypothermic on rewarming therapy so gently attempted to place 16 Cymro temp sensing Gomez and met resistance. Then attempted with 12F Coude again unsuccessful. Discussed with urology, Dr. Fletcher who states he plans to place catheter in OR in am. updated. ESTIMATED BLOOD LOSS: <[address] and lab results. Patient hypotensive in 70s and tachycardic despite hgb improved to 8.7. Lactic acid downtrending but remains elevated. Volume responsive with boluses, total of 1500. STarted on levophed to maintain MAP > 65. Additional CCT [address] Fulton from 07/08. Not billing separately for attempted procedure. Alissa Amaya MD Jul 09, 2017 04:40
[2017-07-09] MEDS ORDERED: CALCIUM GLUCONATE INJ 2 GM in SODIUM CHLORIDE 0.9% INJ 100 ML IV ONE (05:00)
[2017-07-09] MEDS: PIPERACIL-TAZO 2.25 GM PREMIX 50 ML IV SCH ×3 (05:44→23:19)
--- NOTE | 2017-07-09 06:38 | RADRPT ---
EXAM DATE/TIME: 07/09/2017 05:43 [facility] COMPARISON: CHEST SINGLE AP, July 08, 2017, 14:01. INDICATIONS : Short of breath. MEDICAL HISTORY : Metastatic disease. Carcinoma, prostate. SURGICAL HISTORY : Port placement. ENCOUNTER: Subsequent ACUITY: 2 days PAIN SCORE: Non-responsive. LOCATION: Bilateral chest FINDINGS: A single view of the chest demonstrates [id number] in superior vena cava. Patchy bilateral airspac e disease. Subacute bilateral rib fractures. No pneumothorax. CONCLUSION: 1. Subsegmental perihilar and basilar airspace disease, slightly increased from July 08. Jerry Reno MD on July 09, 2017 at 6:34 Board Certified Radiologist. This report was verified electronically.
[2017-07-09 06:54] LABS: AUTOMATED NEUTROPHIL # 16.3 TH/MM3 (1.8-7.7); BASOPHIL % 0.1 % (0.0-2.0); EOSINOPHIL % 0.1 % (0.0-4.0); HEMATOCRIT 24.6 % (39.0-51.0); LYMPH % 1.1 % (9.0-44.0); LYMPHOCYTE # 0.2 TH/MM3 (1.0-4.8); MEAN CELL VOLUME 88.9 FL (80.0-100.0); MEAN CORPUSCULAR HEMOGLOBIN 30.3 PG (27.0-34.0); MEAN CORPUSCULAR HGB CONC 34.1 % (32.0-36.0); MONO % 6.3 % (0.0-8.0); NEUT % 92.4 % (16.0-70.0); PLATELET COUNT 31 TH/MM3 (150-450); RED BLOOD COUNT 2.77 MIL/MM3 (4.50-5.90); RED CELL DISTRIBUTION WIDTH 14.9 % (11.6-17.2); WHITE BLOOD COUNT 17.7 TH/MM3 (4.0-11.0)
[2017-07-09 06:56] LABS: HEMO FLAGS AUTO DIFF
[2017-07-09 06:59] LABS: INTERNATIONAL NORMALIZED RATIO 1.7 RATIO; PROTHROMBIN TIME - PATIENT 19.2 SEC (9.8-11.6)
[2017-07-09] MEDS: PANTOPRAZOLE SODIUM 40 MG VIAL IV PUSH SCH (08:03)
[2017-07-09] MEDS: SODIUM CHLORIDE 0.9% FLUSH 10 ML FLUSH IV FLUSH SCH ×2 (08:03→21:00)
[2017-07-09] MEDS: DOCUSATE SODIUM 50 MG/SENNA 8.6 MG TAB PO SCH ×2 (08:03→21:00)
[2017-07-09 08:20] LABS: BANDS 33 % (0-6); CORRECTED NUCLEATED RBC 19 /100 WBC (0-0); METAMYELOCYTES 1 % (0-1); NEUTROPHIL # MANUAL DIFF 16.3 TH/MM3 (1.8-7.7); PLATELET ESTIMATE SMEAR LOW (NORMAL); PLATELET MORPHOLOGY NORMAL (NORMAL); POLYS (SEG NEUTROPHILS) 58 % (16-70); WBC DIFF SAMPLE 100
[2017-07-09 08:21] LABS: SCAN/DIFF FINAL DIFF MANUAL
[2017-07-09 08:22] LABS: POLYCHROMASIA 2.1 % (0.0-1.9)
[2017-07-09 09:16] LABS: CALCIUM-PROTEIN CORRECTED 8.1 MG/DL (8.5-10.1)
[2017-07-09 09:17] LABS: BICARBONATE 25.1 MEQ/L (21.0-32.0); MAGNESIUM 1.8 MG/DL (1.5-2.5); POTASSIUM 3.6 MEQ/L (3.5-5.1); TOTAL BILIRUBIN ADULT 1.3 MG/DL (0.2-1.0)
--- NOTE | 2017-07-09 12:23 | EKG ---
Date Performed: 07/08/2017 Time Performed: 13:20:17 PTAGE: 71 years EKG: Normal Sinus rhythm Baseline artifact Low limb lead voltage Nonspecific T-wave abnormality NORMAL ECG No prior tracing DOCTOR: Juan Diego Nicolas Interpretating Date/Time 07/09/2017 12:22:23
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
--- NOTE | 2017-07-09 19:07 | HHI.CCPN ---
Subjective Remarks/Hospital Course 71-year-old male with a medical history significant for metastatic prostate cancer who was brought to the ER via EMS with shortness of breath that started this morning. He reportedly has been having progressive fatigue over the last few months. Initially on arrival in the ER he was tachypneic with a systolic blood pressure of 88mm Hg. He was transfused 2 units PRBCs a few months ago by his oncologist who practices in [place]. Patient was evaluated in the ER following his arrival and was noted to have a hemoglobin of 6.7, lactic acid of 14.8 with metabolic acidosis and elevated BUN/creatinine. He received 1 L normal saline bolus in the ER and was ordered 2 units PRBCs as well as platelets and FFP which has still not been transfused. Patient was accepted for admission by critical care medicine service. When I evaluated the patient in the ER he was laying in the ER stretcher and appeared in no acute distress on nasal cannula maintaining O2 sat 100% on 2 L with a heart rate of 89 and blood pressure 130/63. He was confused and could not tell me if he was in the hospital and thought he was in [place] and did not know the year. History was obtained by discussion with patient's as well as his daughter at the bedside. He reportedly has had prostate cancer since 2799 and has undergone treatment including radiation and was also evaluated at [facility] and given some chemotherapy which she did not tolerate well and which resulted in him dropping his blood counts about 3 months ago. He recently followed up with his oncologist in [place] and and was informed regarding poor prognosis with probable life expectancy of 6 months or so. He was diagnosed with a left lower extremity DVT and has been on Eliquis for a few months. His has noticed some blood in the urine recently. Patient denies any fever or chills or abdominal pain currently. Denies any nausea vomiting or diarrhea. 07/09: Has not voided yet. Hgb 8.4. Lactic acidosis improving. Critically ill. Less responsive today. [facility]. Objective Vital Signs Date Time Temp Pulse Resp B/P (MAP) Pulse Ox O2 Delivery O2 Flow Rate FiO2 07/09/17 18:00 100 07/09/17 16:00 97.8 23 131/66 (87) 95 07/09/17 07:44 Nasal Cannula 2.00 Intake and Output 9/07/09/17 07/10/17 08:00 16:00 00:00 Intake Total 3913 ml 1100 ml 328 ml Output Total 0 ml Balance 3913 ml 1100 ml 328 ml Result Diagram: 07/09/17 0620 07/09/17 0620 Imaging Last Impressions Chest X-Ray 07/08/17 1317 Signed Impressions: Service Date/Time: Saturday, July 08, 2017 14:01 - CONCLUSION: 1. Subsegmental atelectasis left base. 2. Osseous metastatic disease Montrell Dc MD Objective Remarks Narrative GENERAL: Cachectic, fragile, alert elderly male. SKIN: Warm and dry. HEAD: Atraumatic. Normocephalic. EYES: Pupils equal and round. Pallor present. No scleral icterus. No injection or drainage. Conjunctiva pallor noted ENT: No nasal bleeding or discharge. Mucous membranes pink and moist. NECK: Trachea midline. Airway widely patent. CARDIOVASCULAR: Tachycardic. No JVD. RESPIRATORY: Good air entry bilaterally no wheezing or crackles. Not using accessory muscles of respiration currently. Clear. GASTROINTESTINAL: Abdomen soft, non-tender, nondistended. Hepatic and splenic margins not palpable. MUSCULOSKELETAL: Extremities without clubbing, cyanosis, or edema. No obvious deformities. RECTAL EXAM: No masses or tenderness, stool is black. NEUROLOGICAL: Awake and alert. Could identify his by name however could not give me current location and did not know the year. No obvious cranial nerve deficits. Motor grossly within normal limits. Five out of 5 muscle strength in the arms and legs. Normal speech. A/P Assessment and Plan 71-year-old male with: Shortness of breath Severe anemia Thrombocytopenia Metastatic prostate cancer Lactic acidosis Acute kidney injury Leukocytosis Suspected severe sepsis History of DVT left lower extremity Plan: Neuro: Follow neuro status, avoid sedatives and narcotics. We will obtain CT head without contrast in view of disorientation to evaluate for metastatic disease. Avoid sedatives. Patient uses oxycodone at home however not in any discomfort currently. Will resume if needed. Cardiovascular: IV hydration, watch for hypotension. Pulmonary: Supplemental O2. Bronchodilators as needed. GI/liver: We will initiate by mouth diet as tolerated following CT abdomen pelvis. Renal/: Strict intake output, monitor and replete electrolytes, follow BUN/ creatinine. Check UA and urine cultures if indicated. CT abdomen pelvis to evaluate for hydronephrosis and further evaluate metastatic disease. Ordered bicarbonate drip in view of metabolic acidosis/lactic acidosis. Follow serial lactate levels. ID: Follow-up blood cultures, UA and urine cultures pending. Received empiric vancomycin and Zosyn in the ER. We will continue Zosyn for empiric antibiotic coverage. Heme-onc: Awaiting 2 units PRBCs, 2 units platelets and 1 unit FFP which have been ordered in the ER as stat. Hold Eliquis in view of severe anemia and thrombocytopenia. Heme-onc consulted for metastatic prostate cancer. Follow CBC Endocrine: Watch for hyperglycemia. SSI for glycemic control if needed. Patient has been on oral prednisone therapy and we will initiate stress dose hydrocortisone during acute illness to avoid hemodynamic instability. Prophylaxis: PPI/SCDs. No heparin or Lovenox in view of severe thrombocytopenia and anemia. Patient appears to be declining rapidly over the last 6 months per family. I did discuss CODE STATUS and long-term goals of therapy. Patient has a living will, patient's at this time wishes to continue full CODE STATUS however is open to having further discussions with palliative care service as well as possible hospice. Overall impression: Critically ill and deteriorating clinical condition despite aggressive hydration. Pain control is acceptable. Critical Care 43 mins Derrek Wang MD Jul 09, 2017 19:07
[2017-07-10] VITALS (13 sets, daily range): BP systolic 109–142; BP diastolic 59–73; PULSE 92–108; RESP 21–30; TEMP 97.6–98; O2SAT 96–99
[2017-07-10] MEDS: CHLORHEXIDINE GLUCONATE 2 % 1 PACK (2 CLOTHS) TOP SCH (04:00)
[2017-07-10] MEDS: SODIUM BICARBONATE 8.4% INJ 150 MEQ in DEXTROSE 5% IN WATE 1000ML INJ 1,000 ML IV SCH ×2 (04:17)
[2017-07-10] MEDS: HYDROCORTISONE SOD SUCCINATE 100 MG VIAL IV PUSH SCH (06:54)
[2017-07-10] MEDS: PIPERACIL-TAZO 2.25 GM PREMIX 50 ML IV SCH (08:00)
[2017-07-10] MEDS: SODIUM CHLORIDE 0.9% FLUSH 10 ML FLUSH IV FLUSH SCH ×2 (09:00→23:29)
[2017-07-10 09:17] LABS: AUTOMATED NEUTROPHIL # 22.2 TH/MM3 (1.8-7.7); BASOPHIL % 0.2 % (0.0-2.0); EOSINOPHIL # 0.2 TH/MM3 (0-0.4); EOSINOPHIL % 0.7 % (0.0-4.0); HEMATOCRIT 25.6 % (39.0-51.0); LYMPH % 1.4 % (9.0-44.0); LYMPHOCYTE # 0.3 TH/MM3 (1.0-4.8); MEAN CELL VOLUME 92.2 FL (80.0-100.0); MEAN CORPUSCULAR HGB CONC 33.6 % (32.0-36.0); MONO % 4.8 % (0.0-8.0); NEUT % 92.9 % (16.0-70.0); PLATELET COUNT 26 TH/MM3 (150-450); RED BLOOD COUNT 2.78 MIL/MM3 (4.50-5.90); WHITE BLOOD COUNT 23.9 TH/MM3 (4.0-11.0)
[2017-07-10 09:37] LABS: HEMO FLAGS AUTO DIFF
[2017-07-10] MEDS: PANTOPRAZOLE SODIUM 40 MG VIAL IV PUSH SCH (10:00)
[2017-07-10 10:36] LABS: BANDS 27 % (0-6); BICARBONATE 27.6 MEQ/L (21.0-32.0); CORRECTED NUCLEATED RBC 14 /100 WBC (0-0); METAMYELOCYTES 5 % (0-1); POLYS (SEG NEUTROPHILS) 60 % (16-70); WBC DIFF SAMPLE 100
[2017-07-10 10:38] LABS: TOXIC GRANULATION 2+ (NORMAL)
[2017-07-10 10:40] LABS: TOXIC VACUOLATION PRESENT (NONE SEEN)
[2017-07-10 10:45] LABS: ACANTHOCYTES OCC (NORMAL); PLATELET ESTIMATE SMEAR LOW (NORMAL); SCAN/DIFF FINAL DIFF MANUAL
[2017-07-10 10:46] LABS: PLATELET MORPHOLOGY ENLARGED (NORMAL)
[2017-07-10 11:09] LABS: CALCIUM-PROTEIN CORRECTED 6.7 MG/DL (8.5-10.1)
[2017-07-10] MEDS ORDERED: CALCIUM GLUCONATE INJ 1 GM in SODIUM CHLORIDE 0.9% INJ 100 ML IV ONE (11:45)
--- NOTE | 2017-07-10 12:25 | HHI.CCPN ---
Subjective Remarks/Hospital Course 71-year-old male with a medical history significant for metastatic prostate cancer who was brought to the ER via EMS with shortness of breath that started this morning. He reportedly has been having progressive fatigue over the last few months. Initially on arrival in the ER he was tachypneic with a systolic blood pressure of 88mm Hg. He was transfused 2 units PRBCs a few months ago by his oncologist who practices in [place]. Patient was evaluated in the ER following his arrival and was noted to have a hemoglobin of 6.7, lactic acid of 14.8 with metabolic acidosis and elevated BUN/creatinine. He received 1 L normal saline bolus in the ER and was ordered 2 units PRBCs as well as platelets and FFP which has still not been transfused. Patient was accepted for admission by critical care medicine service. When I evaluated the patient in the ER he was laying in the ER stretcher and appeared in no acute distress on nasal cannula maintaining O2 sat 100% on 2 L with a heart rate of 89 and blood pressure 130/63. He was confused and could not tell me if he was in the hospital and thought he was in [place] and did not know the year. History was obtained by discussion with patient's as well as his daughter at the bedside. He reportedly has had prostate cancer since 2799 and has undergone treatment including radiation and was also evaluated at [facility] and given some chemotherapy which she did not tolerate well and which resulted in him dropping his blood counts about 3 months ago. He recently followed up with his oncologist in [place] and and was informed regarding poor prognosis with probable life expectancy of 6 months or so. He was diagnosed with a left lower extremity DVT and has been on Eliquis for a few months. His has noticed some blood in the urine recently. Patient denies any fever or chills or abdominal pain currently. Denies any nausea vomiting or diarrhea. 07/09: Has not voided yet. Hgb 8.4. Lactic acidosis improving. Critically ill. Less responsive today. [facility]. 07/10: Urine C&S noted, will narrow to ceftriaxone alone. No improvement in general condition. and patient discussing care plan with Palliative Care Service. Objective Vital Signs Date Time Temp Pulse Resp B/P (MAP) Pulse Ox O2 Delivery O2 Flow Rate FiO2 07/10/17 10:45 21 07/10/17 10:00 97 07/10/17 08:00 97.6 22 122/69 (86) 98 07/10/17 07:00 Nasal Cannula 2.00 Intake and Output 07/10/17 07/10/17 07/11/17 08:00 16:00 00:00 Intake Total 1106 ml Output Total 0 ml Balance 1106 ml Result Diagram: 07/10/17 0837 07/10/17 0837 Other Results Microbiology Date/Time Source Procedure Growth Status 07/08/17 22:00 Urine Clean Catch Urine Culture - Final Escherichia Coli Complete Imaging Last Impressions Chest X-Ray 07/08/17 1317 Signed Impressions: Service Date/Time: Saturday, July 08, 2017 14:01 - CONCLUSION: 1. Subsegmental atelectasis left base. 2. Osseous metastatic disease Montrell Dc MD Objective Remarks Narrative GENERAL: Cachectic, fragile, alert elderly male. SKIN: Warm and dry. HEAD: Atraumatic. Normocephalic. EYES: Pupils equal and round. Pallor present. No scleral icterus. No injection or drainage. Conjunctiva pallor noted ENT: No nasal bleeding or discharge. Mucous membranes pink and moist. NECK: Trachea midline. Airway widely patent. CARDIOVASCULAR: Tachycardic. No JVD. RESPIRATORY: Good air entry bilaterally no wheezing or crackles. Clear. GASTROINTESTINAL: Abdomen soft, non-tender, nondistended. MUSCULOSKELETAL: Extremities without clubbing, cyanosis, or edema. No obvious deformities. NEUROLOGICAL: Awake and alert. Could identify his by name however could not give me current location and did not know the year. No obvious cranial nerve deficits. Motor grossly within normal limits. Five out of 5 muscle strength in the arms and legs. Normal speech. A/P Assessment and Plan 71-year-old male with: Shortness of breath Severe anemia Thrombocytopenia Metastatic prostate cancer Lactic acidosis Acute kidney injury Leukocytosis Suspected severe sepsis History of DVT left lower extremity Plan: Neuro: Follow neuro status, avoid sedatives and narcotics. We will obtain CT head without contrast in view of disorientation to evaluate for metastatic disease. Avoid sedatives. Patient uses oxycodone at home however not in any discomfort currently. Will resume if needed. Cardiovascular: IV hydration, watch for hypotension. Pulmonary: Supplemental O2. Bronchodilators as needed. GI/liver: We will initiate by mouth diet as tolerated following CT abdomen pelvis. Renal/: Strict intake output, monitor and replete electrolytes, follow BUN/ creatinine. Check UA and urine cultures if indicated. CT abdomen pelvis to evaluate for hydronephrosis and further evaluate metastatic disease. Ordered bicarbonate drip in view of metabolic acidosis/lactic acidosis. Follow serial lactate levels. ID: Follow-up blood cultures, UA and urine cultures pending. Received empiric vancomycin and Zosyn in the ER. We will continue Zosyn for empiric antibiotic coverage. Heme-onc: Awaiting 2 units PRBCs, 2 units platelets and 1 unit FFP which have been ordered in the ER as stat. Hold Eliquis in view of severe anemia and thrombocytopenia. Heme-onc consulted for metastatic prostate cancer. Follow CBC Endocrine: Watch for hyperglycemia. SSI for glycemic control if needed. Patient has been on oral prednisone therapy and we will initiate stress dose hydrocortisone during acute illness to avoid hemodynamic instability. Prophylaxis: PPI/SCDs. No heparin or Lovenox in view of severe thrombocytopenia and anemia. Patient appears to be declining rapidly over the last 6 months per family. I did discuss CODE STATUS and long-term goals of therapy. Patient has a living will, patient's at this time wishes for DNR CODE STATUS. Overall impression: Critically ill and deteriorating clinical condition despite aggressive hydration. Pain control is acceptable. Will stop stress dose steroids , narrow antibiotic coverage. Derrek Wang MD Jul 10, 2017 12:25
[2017-07-10] MEDS ORDERED: cefTRIAXone INJ 1,000 MG in SODIUM CHLORIDE 0.9% INJ 100 ML IV SCH (13:00)
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
--- NOTE | 2017-07-10 14:24 | HHI.HCPN ---
Reason for visit a. To assist with evaluation and management of symptoms including: pain, lethargy, dyspnea. b. To assist medical decision maker(s) with: better understanding of current medical conditions; weighing benefits/burdens of medical treatment options; making medical treatment decisions. . Subjective/Interval History INTERVAL NOTE: Patient is remaining quite weak. He's been afebrile. During the night, he was more confused and agitated, pulling out his Burris needle, pulling off electrodes , etc. He was in restraints during the night, but those have been released this morning. His white count is higher 23.9, his renal function is worse - creatinine 3.41, his protein corrected calcium is only 6.7, and the chest x-ray has some worsening basilar airspace disease. The patient is oriented to place and month and person. He was included in the conversation about goals, see below. . Family/friend interactions is present in the room with me and the patient. We discussed his long course of medical illness, his decline over the last few months, his worsening debility in the past couple weeks, and his continued weight loss. The patient and his feel that he is appropriate for hospice, but the patient says "not today." The patient's reports that the family wants "to pray about it tonight." . Advance Directives Living Will: Copy in medical record Advance Directive Specifics Date completed: 04/09/17 . Health Care Surrogate(s): Designated health care surrogate , Cory Oropeza as primary HCS. Alternate HCS Eh Oropeza (son) OR Delores Oropeza (daughter). . Documented care wishes: Standard Living Will on chart stating if he has a terminal condition, end stage condition or is in a persistent vegetative state he would want life prolonging procedures or measures withheld or withdrawn. . Objective Vital Signs Date Time Temp Pulse Resp B/P (MAP) Pulse Ox O2 Delivery O2 Flow Rate FiO2 07/10/17 10:45 21 07/10/17 10:00 97 07/10/17 08:00 97.6 97 22 122/69 (86) 98 07/10/17 08:00 96 07/10/17 07:00 97 Nasal Cannula 2.00 07/10/17 06:00 95 07/10/17 04:00 97.6 92 21 142/70 (94) 99 07/10/17 04:00 92 07/10/17 02:33 99 Nasal Cannula 2.00 07/10/17 02:00 94 07/10/17 00:00 97.9 98 23 128/68 (88) 96 07/10/17 00:00 98 07/09/17 22:00 100 07/09/17 20:00 94 07/09/17 20:00 97.1 94 19 97/58 (71) 97 07/09/17 19:00 95 Nasal Cannula 2.00 07/09/17 18:00 100 07/09/17 16:00 97.8 100 23 131/66 (87) 95 07/09/17 16:00 100 Intake & Output 07/10/17 07/10/17 07:00 19:00 Intake Total 1106 ml Output Total 0 ml Balance 1106 ml Intake Oral 0 ml IV Total 1106 ml Output Urine Total 0 ml # Voids 2 Physical Exam CONSTITUTIONAL/GENERAL: This is a critically, chronically ill, cachectic, frail patient, lethargic. TUBES/LINES/DRAINS: right port, PIV. SKIN: No jaundice, rashes, or lesions. Ecchymoses on upper extremities. No wounds seen anteriorly. Skin temperature appropriate. Not diaphoretic. NECK: Trachea midline. CARDIOVASCULAR: Regular rate and rhythm without murmurs, gallops, or rubs. No JVD. Peripheral pulses symmetric. RESPIRATORY/CHEST: Symmetric, unlabored respirations. Clear to auscultation. Breath sounds equal bilaterally. No wheezes, rales, or rhonchi. GASTROINTESTINAL: Abdomen soft, non-tender, nondistended. No guarding. Bowel sounds present. GENITOURINARY: Without palpable bladder distension. Reese catheter in place. MUSCULOSKELETAL: Left LE edematous, recent DVT. Muscle wasting noted. NEUROLOGICAL: Awake, oriented to person, month, place. Follows commands. PSYCHIATRIC: No obvious anxiety or psychosis. He was agitated and in restraints during the night. . Diagnostic Tests Laboratory Laboratory Tests Test 07/08/17 13:30 07/08/17 13:40 07/08/17 14:00 07/08/17 14:15 White Blood Count 18.2 TH/MM3 (4.0-11.0) Red Blood Count 2.24 MIL/MM3 (4.50-5.90) Hemoglobin 6.8 GM/DL (13.0-17.0) Hematocrit 22.6 % (39.0-51.0) Mean Corpuscular Volume 101.0 FL (80.0-100.0) Mean Corpuscular Hemoglobin 30.2 PG (27.0-34.0) Mean Corpuscular Hemoglobin Concent 29.9 % (32.0-36.0) Red Cell Distribution Width 21.8 % (11.6-17.2) Platelet Count 13 TH/MM3 (150-450) Mean Platelet Volume 11.4 FL (7.0-11.0) Neutrophils (%) (Auto) 87.2 % (16.0-70.0) Lymphocytes (%) (Auto) 3.9 % (9.0-44.0) Monocytes (%) (Auto) 8.5 % (0.0-8.0) Eosinophils (%) (Auto) 0.3 % (0.0-4.0) Basophils (%) (Auto) 0.1 % (0.0-2.0) Neutrophils # (Auto) 15.9 TH/MM3 (1.8-7.7) Lymphocytes # (Auto) 0.7 TH/MM3 (1.0-4.8) Monocytes # (Auto) 1.6 TH/MM3 (0-0.9) Eosinophils # (Auto) 0.1 TH/MM3 (0-0.4) Basophils # (Auto) 0.0 TH/MM3 (0-0.2) CBC Comment AUTO DIFF Differential Total Cells Counted 100 Neutrophils % (Manual) 80 % (16-70) Band Neutrophils % 9 % (0-6) Lymphocytes % 2 % (9-44) Monocytes % 6 % (0-8) Neutrophils # (Manual) 16.7 TH/MM3 (1.8-7.7) Metamyelocytes 2 % (0-1) Myelocytes 1 % (0-0) Nucleated Red Blood Cells 6 /100 WBC (0-0) Differential Comment FINAL DIFF MANUAL Platelet Estimate RARE (NORMAL) Platelet Morphology Comment ENLARGED (NORMAL) Polychromasia 3.2 % (0.0-1.9) Acanthocytes OCC (NORMAL) Red Cell Morphology Comment (NORMAL) Blood Urea Nitrogen 61 MG/DL (7-18) Creatinine 3.33 MG/DL (0.60-1.30) Random Glucose 198 MG/DL (74-106) Total Protein 5.4 GM/DL (6.4-8.2) Albumin 2.4 GM/DL (3.4-5.0) Calcium Level 7.7 MG/DL (8.5-10.1) Magnesium Level 2.6 MG/DL (1.5-2.5) Alkaline Phosphatase 309 U/L (45-117) Aspartate Amino Transf (AST/SGOT) 143 U/L (15-37) Alanine Aminotransferase (ALT/SGPT) 37 U/L (12-78) Total Bilirubin 1.5 MG/DL (0.2-1.0) Sodium Level 135 MEQ/L (136-145) Potassium Level 4.7 MEQ/L (3.5-5.1) Chloride Level 98 MEQ/L (98-107) Carbon Dioxide Level 9.5 MEQ/L (21.0-32.0) Anion Gap 28 MEQ/L (5-15) Estimat Glomerular Filtration Rate 18 ML/MIN (>89) B-Type Natriuretic Peptide 116 PG/ML (0-100) Blood Gas Puncture Site RT RADIAL Blood Gas Patient Temperature 98.6 Blood Gas HCO3 5 mmol/L (22-26) Blood Gas Base Excess -21.1 mmol/L (-2-2) Blood Gas Oxygen Saturation 96 % (90-100) Arterial Blood pH 7.29 (7.380-7.420) Arterial Blood Partial Pressure CO2 11 mmHg (38-42) Arterial Blood Partial Pressure O2 132 mmHG (61-120) Arterial Blood Oxygen Content 9.3 Vol % (12.0-20.0) Arterial Blood Carboxyhemoglobin 1.7 % (0-4) Arterial Blood Methemoglobin 0.8 % (0-2) Blood Gas Hemoglobin 6.7 G/DL (12.0-16.0) Oxygen Delivery Device NASAL CANNULA Blood Gas Liter Flow 2 L/M Blood Gas Inspired Oxygen 28 % Prothrombin Time 23.2 SEC (9.8-11.6) Prothromb Time International Ratio 2.0 RATIO Activated Partial Thromboplast Time 35.0 SEC (24.3-30.1) Lactic Acid Level 14.8 mmol/L (0.4-2.0) Test 07/08/17 18:40 07/08/17 22:00 07/09/17 00:05 07/09/17 06:20 Nasal Screen MRSA (PCR) MRSA NOT DETECTED (NOT Urine Color YELLOW (YELLW/STRAW) Urine Turbidity CLOUDY (CLEAR) Urine pH 5.5 (5.0-8.5) Urine Specific [place] 1.016 (1.002-1.035) Urine Protein 30 mg/dL (NEG-TRACE) Urine Glucose (UA) NEG mg/dL (NEG) Urine Ketones TRACE mg/dL (NEG) Urine Occult Blood LARGE (NEG) Urine Nitrite NEG (NEG) Urine Bilirubin NEG (NEG) Urine Urobilinogen 2.0 MG/DL (LESS THAN Urine Leukocyte Esterase LARGE (NEG) Urine RBC 91 /hpf (0-3) Urine WBC /hpf (0-5) Urine Squamous Epithelial Cells 1 /hpf (0-5) Urine Amorphous Sediment RARE Urine Bacteria MANY /hpf (NONE) Microscopic Urinalysis Comment CULTURE INDICATED White Blood Count 12.1 TH/MM3 (4.0-11.0) 17.7 TH/MM3 (4.0-11.0) Red Blood Count 2.89 MIL/MM3 (4.50-5.90) 2.77 MIL/MM3 (4.50-5.90) Hemoglobin 8.7 GM/DL (13.0-17.0) 8.4 GM/DL (13.0-17.0) Hematocrit 25.7 % (39.0-51.0) 24.6 % (39.0-51.0) Mean Corpuscular Volume 89.1 FL (80.0-100.0) 88.9 FL (80.0-100.0) Mean Corpuscular Hemoglobin 30.0 PG (27.0-34.0) 30.3 PG (27.0-34.0) Mean Corpuscular Hemoglobin Concent 33.7 % (32.0-36.0) 34.1 % (32.0-36.0) Red Cell Distribution Width 15.0 % (11.6-17.2) 14.9 % (11.6-17.2) Platelet Count 50 TH/MM3 (150-450) 31 TH/MM3 (150-450) Mean Platelet Volume 8.0 FL (7.0-11.0) 8.8 FL (7.0-11.0) Blood Urea Nitrogen 67 MG/DL (7-18) 66 MG/DL (7-18) Creatinine 2.98 MG/DL (0.60-1.30) 2.74 MG/DL (0.60-1.30) Random Glucose 122 MG/DL (74-106) 159 MG/DL (74-106) Total Protein 5.1 GM/DL (6.4-8.2) 4.6 GM/DL (6.4-8.2) Calcium Level 6.8 MG/DL (8.5-10.1) 6.8 MG/DL (8.5-10.1) Phosphorus Level 3.9 MG/DL (2.5-4.9) 3.8 MG/DL (2.5-4.9) Sodium Level 140 MEQ/L (136-145) 140 MEQ/L (136-145) Potassium Level 3.5 MEQ/L (3.5-5.1) 3.6 MEQ/L (3.5-5.1) Chloride Level 101 MEQ/L (98-107) 102 MEQ/L (98-107) Carbon Dioxide Level 22.0 MEQ/L (21.0-32.0) 25.1 MEQ/L (21.0-32.0) Anion Gap 17 MEQ/L (5-15) 13 MEQ/L (5-15) Estimat Glomerular Filtration Rate 21 ML/MIN (>89) 23 ML/MIN (>89) Lactic Acid Level 7.5 mmol/L (0.4-2.0) 3.2 mmol/L (0.4-2.0) Protein Corrected Calcium 7.8 MG/DL (8.5-10.1) 8.1 MG/DL (8.5-10.1) Neutrophils (%) (Auto) 92.4 % (16.0-70.0) Lymphocytes (%) (Auto) 1.1 % (9.0-44.0) Monocytes (%) (Auto) 6.3 % (0.0-8.0) Eosinophils (%) (Auto) 0.1 % (0.0-4.0) Basophils (%) (Auto) 0.1 % (0.0-2.0) Neutrophils # (Auto) 16.3 TH/MM3 (1.8-7.7) Lymphocytes # (Auto) 0.2 TH/MM3 (1.0-4.8) Monocytes # (Auto) 1.1 TH/MM3 (0-0.9) Eosinophils # (Auto) 0.0 TH/MM3 (0-0.4) Basophils # (Auto) 0.0 TH/MM3 (0-0.2) CBC Comment AUTO DIFF Differential Total Cells Counted 100 Neutrophils % (Manual) 58 % (16-70) Band Neutrophils % 33 % (0-6) Monocytes % 8 % (0-8) Neutrophils # (Manual) 16.3 TH/MM3 (1.8-7.7) Metamyelocytes 1 % (0-1) Nucleated Red Blood Cells 19 /100 WBC (0-0) Differential Comment FINAL DIFF MANUAL Platelet Estimate LOW (NORMAL) Platelet Morphology Comment NORMAL (NORMAL) Polychromasia 2.1 % (0.0-1.9) Prothrombin Time 19.2 SEC (9.8-11.6) Prothromb Time International Ratio 1.7 RATIO Albumin 2.2 GM/DL (3.4-5.0) Magnesium Level 1.8 MG/DL (1.5-2.5) Alkaline Phosphatase 226 U/L (45-117) Aspartate Amino Transf (AST/SGOT) 2725 U/L (15-37) Alanine Aminotransferase (ALT/SGPT) 281 U/L (12-78) Total Bilirubin 1.3 MG/DL (0.2-1.0) Test 07/10/17 08:37 07/10/17 12:00 White Blood Count 23.9 TH/MM3 (4.0-11.0) Red Blood Count 2.78 MIL/MM3 (4.50-5.90) Hemoglobin 8.6 GM/DL (13.0-17.0) Hematocrit 25.6 % (39.0-51.0) Mean Corpuscular Volume 92.2 FL (80.0-100.0) Mean Corpuscular Hemoglobin 31.0 PG (27.0-34.0) Mean Corpuscular Hemoglobin Concent 33.6 % (32.0-36.0) Red Cell Distribution Width 16.0 % (11.6-17.2) Platelet Count 26 TH/MM3 (150-450) Mean Platelet Volume 11.3 FL (7.0-11.0) Neutrophils (%) (Auto) 92.9 % (16.0-70.0) Lymphocytes (%) (Auto) 1.4 % (9.0-44.0) Monocytes (%) (Auto) 4.8 % (0.0-8.0) Eosinophils (%) (Auto) 0.7 % (0.0-4.0) Basophils (%) (Auto) 0.2 % (0.0-2.0) Neutrophils # (Auto) 22.2 TH/MM3 (1.8-7.7) Lymphocytes # (Auto) 0.3 TH/MM3 (1.0-4.8) Monocytes # (Auto) 1.2 TH/MM3 (0-0.9) Eosinophils # (Auto) 0.2 TH/MM3 (0-0.4) Basophils # (Auto) 0.0 TH/MM3 (0-0.2) CBC Comment AUTO DIFF Differential Total Cells Counted 100 Neutrophils % (Manual) 60 % (16-70) Band Neutrophils % 27 % (0-6) Lymphocytes % 4 % (9-44) Monocytes % 4 % (0-8) Neutrophils # (Manual) 22.0 TH/MM3 (1.8-7.7) Metamyelocytes 5 % (0-1) Nucleated Red Blood Cells 14 /100 WBC (0-0) Differential Comment FINAL DIFF MANUAL Toxic Granulation 2+ (NORMAL) Toxic Vacuolation PRESENT (NONE SEEN) Platelet Estimate LOW (NORMAL) Platelet Morphology Comment ENLARGED (NORMAL) Polychromasia 2.0 % (0.0-1.9) Acanthocytes OCC (NORMAL) Red Cell Morphology Comment (NORMAL) Blood Urea Nitrogen 83 MG/DL (7-18) Creatinine 3.41 MG/DL (0.60-1.30) Random Glucose 160 MG/DL (74-106) Total Protein 5.5 GM/DL (6.4-8.2) Calcium Level 6.0 MG/DL (8.5-10.1) Sodium Level 136 MEQ/L (136-145) Potassium Level 4.0 MEQ/L (3.5-5.1) Chloride Level 94 MEQ/L (98-107) Carbon Dioxide Level 27.6 MEQ/L (21.0-32.0) Anion Gap 14 MEQ/L (5-15) Estimat Glomerular Filtration Rate 18 ML/MIN (>89) Protein Corrected Calcium 6.7 MG/DL (8.5-10.1) Result Diagram: 07/10/17 0837 07/10/17 0837 Microbiology Microbiology Date/Time Source Procedure Growth Status 07/08/17 15:15 Blood Peripheral Aerobic Blood Culture - Preliminary NO GROWTH IN 2 DAYS Resulted 07/08/17 15:15 Blood Peripheral Anaerobic Blood Culture - Preliminary NO GROWTH IN 2 DAYS Resulted 07/08/17 15:00 Blood Peripheral Aerobic Blood Culture - Preliminary NO GROWTH IN 2 DAYS Resulted 07/08/17 15:00 Blood Peripheral Anaerobic Blood Culture - Preliminary NO GROWTH IN 2 DAYS Resulted 07/08/17 22:00 Urine Clean Catch Urine Culture - Final Escherichia Coli Complete Imaging Last Impressions Chest X-Ray 07/09/17 0000 Signed Impressions: Service Date/Time: Sunday, July 09, 2017 05:43 - CONCLUSION: 1. Subsegmental perihilar and basilar airspace disease, slightly increased from July 08. Jerry Reno MD Head CT 07/08/17 0000 Signed Impressions: Service Date/Time: Saturday, July 08, 2017 17:10 - CONCLUSION: 1. No acute intracranial abnormality. Andrey Trejo MD Abdomen/Pelvis CT 07/08/17 0000 Signed Impressions: Service Date/Time: Saturday, July 08, 2017 17:09 - CONCLUSION: 1. There is moderate hydronephrosis on the left. There is mild hydronephrosis on the right. 2. There is extensive retroperitoneal lymphadenopathy. 3. Extensive iliac and right inguinal adenopathy. 4. Widespread bony metastatic disease. 5. 1.6 cm pericardial node. 6. 2.7 x 4.0 cm pleural-based mass on the right. 7. COPD changes within the lung bases. Andrey Trejo MD Assessment and Plan Disease Oriented Problem List: (1) widely metastatic prostate cancer (2) GI bleed (3) ARF (acute renal failure) (4) Metabolic acidosis (5) Sepsis (6) Thrombocytopenia (7) Anemia Symptom Scale: (1) Pain 0-10 Scale: 1 Pertinent Non-Medical Issues Psychosocial: . Spiritual: Faith irma. Legal: Ethical issues impacting care: None Important Contacts * Cory Oropeza, spouse: [phone] (home) or [phone] (cell) * Brianna Brown, daughter: [phone] . Prognosis Patient with mets prostate cancer to bone with recent trajectory of decline. PPS 20-30 prior to admission. Hospice is appropriate. . Code Status: No Code Plan * Patient is lethargic, and has intermittent confusion. Although he participates in the conversation, I do not believe he has capacity for healthcare decision making at this time. Designated health care surrogate , Cory Oropeza as primary HCS. Alternate HCS Eh Oropeza (son) OR Delores Oropeza (daughter). * NO CODE (DNR/ DNI) * Family again wants to speak more amongst themselves, they are fairly certain they will transition to comfort measures with hospice support. We will see in AM. * SYMPTOMS: lethargy: multifactorial secondary to mets prostate cancer, renal failure, etc. Pain: secondary to mets prostate cancer to LN, bone and poss lung. Patient was using sparing oxycodone prior to admission. Dyspnea: poss lung mets and anemia. * Palliative care will continue to follow to assist with clarification of goals and symptom management. . Time Spent Total Floor Time (mins): 37 Face to Face Time (mins): 26 >50% Counseling/Coord of Care: Yes Attestation To help prompt me to consider important information that might be impacting today's encounter and assessment, information from prior notes written by myself or my colleagues may have been "brought forward" into today's note. My signature on this note, however, is an attestation that I personally performed the exam, history, and/or decision-making noted today, and, unless otherwise indicated, the interactions with patient, family, and staff as well as the review of records all occurred today. I also attest that the listed assessment and stated plan reflect my best clinical judgment today based on the combination of historical information, prior notes, and today's exam/ interactions. When time spent is documented, it refers only to time spent today by the signer, or if indicated, combined time spent today by collaborating physician/nurse practitioner. Yanelis Burk MD Jul 10, 2017 14:24
[2017-07-10] MEDS ORDERED: MORPHINE SULFATE 4 MG/ML INJ IV PUSH PRN (14:30)
--- NOTE | 2017-07-10 16:01 | HHI.HCSW ---
[facility] Team Leader Visit Cognitive Functioning Visit to Mr. Oropeza to provide additional support in follow-up from palliative care meeting this morning. Mr. Oropeza in room alone, lying in bed , yelling out "mama can you please read me those books". Does not appear uncomfortable or bothered by possible hallucinations?? . Significant Family/Friend Met with in waiting area. She verbalizes a need "to get out the room because Marin isn't being very nice" Gently explained my finding upon arrival to his room and she reports "I'm mama. Ever since our kids were both that is what he has called me". Allowed time for life review as Mrs. Oropeza shared memories and experience with friends, family, and her . She tells me they met with hospice this morning and "Marin said no". Verbalizes daughter and son will be coming to the hospital later tonight and they are all hopeful that Marin will "change his mind". She shares with me that their grandson "didn't think he wanted his pop-pop in hospice but after hearing all that was wrong with him he thinks it is a good place for him to be". appears to feel the same way although it seems family is waiting for patient to make the decision. Family remains a great support system for one another. is appreciative of medical team and palliative care support. They all appear to have a good understanding for Mr. Oropeza's medical condition and decline but wish to respect his wishes at this time. verbalizes he does not want to . I supported her with sometimes we have to change the things we fight for based on what our situation is and it may possibly be helpful for family to engage in conversation with Mr. Gruber on how the focus of his fight can change. . Spiritual/[employer] Patient and family have support from their local mandaeism. [employer] [employer], deacon, and other synagogue have been by to offer prayers and support. . Advance Directive Living will with health care surrogate designation in chart and EMR. , Croy , is primary health care surrogate. . Proposed Soc Wrk Intervention Family benefits from ongoing support, allowing time for life review and reflection of current situation. Appears family is open to hospice services and desires transition to comfort care with hospice services at [facility]. Awaiting patient to make the decision himself as they wish to honor his wishes. . Follow Up Visit Palliative care will continue to follow throughout hospitalization. Unique Alvarez, PHYSICAL THERAPIST TECHNICIAN Jul 10, 2017 16:01
[2017-07-10] MEDS: DOCUSATE SODIUM 50 MG/SENNA 8.6 MG TAB PO SCH (21:00)
[2017-07-11] VITALS (8 sets, daily range): BP systolic 101–122; BP diastolic 65–77; PULSE 100–115; RESP 15–26; TEMP 97.6–98.1; O2SAT 99–100
[2017-07-11] MEDS: SODIUM BICARBONATE 8.4% INJ 150 MEQ in DEXTROSE 5% IN WATE 1000ML INJ 1,000 ML IV SCH ×2 (03:53)
[2017-07-11] MEDS: CHLORHEXIDINE GLUCONATE 2 % 1 PACK (2 CLOTHS) TOP SCH (04:36)
--- NOTE | 2017-07-11 05:32 | MB ---
cc: HEATHER CAMPBELL M.D. DATE OF CONSULTATION 07/10/2017 REASON FOR CONSULTATION Consult requested by Dr. Fulton for evaluation of metastatic prostate cancer. HISTORY OF PRESENT ILLNESS Marin is a 71-year-old very cachectic, chronically ill-appearing white male. He has a history of metastatic prostate cancer which is hormone refractory. The patient has had multiple hormonal manipulation for his prostate cancer. His disease has progressed. He had radiation therapy as well. The patient subsequently was tried on Taxotere chemotherapy for several months. He failed that chemo and then he Jevtana chemotherapy. I do not have any of those records available but this is according to the patient's and his 's recollection. The patient is under the care of Dr. Carney who is his medical oncologist and has supervised the chemotherapy. Dr. Carney has recommended supportive care with hospice. However, the patient declined that and he went to [facility] to get a second opinion. According to the they have recommended mitoxantrone chemotherapy. The patient elected to have that chemotherapy locally. The patient had two cycles of mitoxantrone chemotherapy under the care of Dr. Carney. The last chemotherapy was in April. Since then the patient has become severely myelosuppressed and no further chemotherapy was recommended. The patient has been getting blood and platelet transfusion support according to his . The patient was brought into the emergency room after he was complaining of shortness of breath. The patient wanted to go to [facility] where all his records are there but the paramedics brought him to [facility]. On admission his CBC showed white count 18.2, hemoglobin 6.8, hematocrit 22.6, platelet count is 13. The patient has received blood and platelet transfusion. His hemoglobin improved to 8.6 today and the platelet count is 26. The patient was found to have sepsis and he is getting antibiotic. The patient is also found to have acute renal failure. His creatinine was 3.3 on admission. He had a CAT scan of the abdomen and pelvis which showed bilateral hydronephrosis, moderate on the left side and mild on the right side. He has extensive retroperitoneal lymphadenopathy, extensive iliac and right inguinal lymphadenopathy, widespread bony metastatic disease. He also has a 4-cm pleural-based right lung mass and pericardial lymphadenopathy. CAT scan of the head is negative. The patient's performance status is very poor. According to his he is not able to walk. He is mostly bedridden or wheelchair dependent. He has multiple bruises. He has also COPD and has been having problem with breathing. The rest of the review of systems is negative. PAST MEDICAL HISTORY 1. Metastatic prostate cancer. 2. DVT of the left lower extremity. PAST SURGICAL HISTORY Aduopy-N-Xoah placement. ALLERGIES None. MEDICATIONS Prior to coming to the hospital - 1. Zofran. 2. Eliquis. 3. Prednisone. 4. Oxycodone. FAMILY HISTORY Noncontributory. SOCIAL HISTORY The patient does not smoke cigarettes, does not drink alcohol. PHYSICAL EXAMINATION GENERAL: This a well-developed, elderly, cachectic white male in moderate respiratory distress. VITAL SIGNS: Temperature 97.6, heart rate is 101, blood pressure is 129/73, O2 saturation 99%. HEENT: PERRLA, EOMI, anicteric. No oral lesions noted. NECK: No lymphadenopathy noted. LUNGS: Decreased breath sounds on both sides. HEART: Regular rate and rhythm. ABDOMEN: Soft, nontender. No hepatosplenomegaly. EXTREMITIES: Edema noted on both lower legs, more on the left than the right. NEUROLOGY: Awake, alert, oriented x 3. SKIN: Multiple bruises are noted. ASSESSMENT 1. End-stage prostate cancer, status post multiple endocrine therapies and multiple lines of chemotherapy with continued progression. 2. Myelosuppression from the chemotherapy. Certainly bone marrow infiltration with prostate cancer could be a strong possibility. 3. Bilateral hydronephrosis causing renal failure. 4. DVT of the left lower extremity, was on Eliquis which has now been stopped appropriately due to the elevated creatinine and thrombocytopenia. PLAN I have reviewed his available records and I had an extensive discussion with the patient and his regarding his prostate cancer. The patient has failed multiple lines of endocrine therapy. He also has failed multiple lines of the chemotherapy including Taxotere, Jevtana and now he was on mitoxantrone. He was unable to tolerate mitoxantrone due to severe myelosuppression. His last chemotherapy was 2 months ago in April. The patient is not a candidate for any further chemotherapy based on his poor performance status which is completely bedridden and wheelchair dependent as well as poor tolerance. I strongly have recommended Hospice. His accepted Hospice but the patient does not want to do Hospice. He states that he will find a Plan B. When I asking him what is the Plan B, he says he does not know but somebody will come up with a Plan B. The patient is in extreme denial. I do not think that he is going to recover from this. He is declining according to his who very is understandable and agreed that the patient should have best supportive care with hospice. We also discussed about not going back on Eliquis due to renal failure. His creatinine is 3.41. Urology has been consulted. He has bilateral hydronephrosis so the patient probably could have bladder outlet obstruction or this could be due to extensive pelvic and retroperitoneal lymphadenopathy which is due to metastatic prostate cancer. I will check the PSA. Unfortunately there is nothing more that could be done from my standpoint. Upon discharge the patient could be followed up by his oncologist, Dr. Carney. Palliative Care has been consulted. I have reviewed their notes. I do not think the patient will have any meaningful recovery from this extensive metastatic prostate cancer which was treated extensively so far. Thank you for asking my opinion. MD VIC Michael/TRA /11:48 PM /5:11 AM
[2017-07-11] MEDS: DOCUSATE SODIUM 50 MG/SENNA 8.6 MG TAB PO SCH (09:00)
[2017-07-11] MEDS: PANTOPRAZOLE SODIUM 40 MG VIAL IV PUSH SCH (09:00)
[2017-07-11] MEDS: SODIUM CHLORIDE 0.9% FLUSH 10 ML FLUSH IV FLUSH SCH (09:00)
--- NOTE | 2017-07-11 11:10 | HHI.CCPN ---
Subjective Remarks/Hospital Course 71-year-old male with a medical history significant for metastatic prostate cancer who was brought to the ER via EMS with shortness of breath that started this morning. He reportedly has been having progressive fatigue over the last few months. Initially on arrival in the ER he was tachypneic with a systolic blood pressure of 88mm Hg. He was transfused 2 units PRBCs a few months ago by his oncologist who practices in [place]. Patient was evaluated in the ER following his arrival and was noted to have a hemoglobin of 6.7, lactic acid of 14.8 with metabolic acidosis and elevated BUN/creatinine. He received 1 L normal saline bolus in the ER and was ordered 2 units PRBCs as well as platelets and FFP which has still not been transfused. Patient was accepted for admission by critical care medicine service. When I evaluated the patient in the ER he was laying in the ER stretcher and appeared in no acute distress on nasal cannula maintaining O2 sat 100% on 2 L with a heart rate of 89 and blood pressure 130/63. He was confused and could not tell me if he was in the hospital and thought he was in [place] and did not know the year. History was obtained by discussion with patient's as well as his daughter at the bedside. He reportedly has had prostate cancer since 1 and has undergone treatment including radiation and was also evaluated at [facility] and given some chemotherapy which she did not tolerate well and which resulted in him dropping his blood counts about 3 months ago. He recently followed up with his oncologist in [place] and and was informed regarding poor prognosis with probable life expectancy of 6 months or so. He was diagnosed with a left lower extremity DVT and has been on Eliquis for a few months. His has noticed some blood in the urine recently. Patient denies any fever or chills or abdominal pain currently. Denies any nausea vomiting or diarrhea. 07/09: Has not voided yet. Hgb 8.4. Lactic acidosis improving. Critically ill. Less responsive today. Family [facility]. 07/10: Urine C&S noted, will narrow to ceftriaxone alone. No improvement in general condition. and patient discussing care plan with Palliative Care Service. 07/11: Will transfer to Hospice Service/Care Center. Objective Vital Signs Date Time Temp Pulse Resp B/P (MAP) Pulse Ox O2 Delivery O2 Flow Rate FiO2 07/11/17 10:00 101 9/28/17 08:00 97.8 16 106/69 (81) 100 07/11/17 07:40 Nasal Cannula 2.00 07/10/17 10:45 21 Intake and Output 07/11/17 07/11/17 07/12/17 08:00 16:00 00:00 Intake Total 1275 ml Balance 1275 ml Result Diagram: 07/10/17 0837 07/10/17 0837 Other Results Microbiology Date/Time Source Procedure Growth Status 07/08/17 22:00 Urine Clean Catch Urine Culture - Final Escherichia Coli Complete Imaging Last Impressions Chest X-Ray 07/08/17 1317 Signed Impressions: Service Date/Time: Saturday, July 08, 2017 14:01 - CONCLUSION: 1. Subsegmental atelectasis left base. 2. Osseous metastatic disease Montrell Dc MD Objective Remarks Narrative GENERAL: Cachectic, fragile, alert elderly male. SKIN: Warm and dry. HEAD: Atraumatic. Normocephalic. EYES: Pupils equal and round. Pallor present. No scleral icterus. No injection or drainage. Conjunctiva pallor noted ENT: No nasal bleeding or discharge. Mucous membranes pink and moist. NECK: Trachea midline. Airway widely patent. CARDIOVASCULAR: Tachycardic. No JVD. RESPIRATORY: Good air entry bilaterally no wheezing or crackles. Clear. GASTROINTESTINAL: Abdomen soft, non-tender, nondistended. MUSCULOSKELETAL: Extremities without clubbing, cyanosis, or edema. No obvious deformities. NEUROLOGICAL: Awake and alert. Could identify his by name however could not give me current location and did not know the year. No obvious cranial nerve deficits. Motor grossly within normal limits. Five out of 5 muscle strength in the arms and legs. Normal speech. Urinary Catheter: Yes Assessment to: Continue Reese insert reason: End of Life A/P Assessment and Plan 71-year-old male with: Shortness of breath Severe anemia Thrombocytopenia Metastatic prostate cancer Lactic acidosis Acute kidney injury Leukocytosis Suspected severe sepsis History of DVT left lower extremity Plan: Neuro: Follow neuro status, avoid sedatives and narcotics. We will obtain CT head without contrast in view of disorientation to evaluate for metastatic disease. Avoid sedatives. Patient uses oxycodone at home however not in any discomfort currently. Will resume if needed. Cardiovascular: IV hydration, watch for hypotension. Pulmonary: Supplemental O2. Bronchodilators as needed. GI/liver: We will initiate by mouth diet as tolerated following CT abdomen pelvis. Renal/: Strict intake output, monitor and replete electrolytes, follow BUN/ creatinine. Check UA and urine cultures if indicated. CT abdomen pelvis to evaluate for hydronephrosis and further evaluate metastatic disease. Ordered bicarbonate drip in view of metabolic acidosis/lactic acidosis. Follow serial lactate levels. ID: Follow-up blood cultures, UA and urine cultures pending. Received empiric vancomycin and Zosyn in the ER. We will continue Zosyn for empiric antibiotic coverage. Heme-onc: Awaiting 2 units PRBCs, 2 units platelets and 1 unit FFP which have been ordered in the ER as stat. Hold Eliquis in view of severe anemia and thrombocytopenia. Heme-onc consulted for metastatic prostate cancer. Follow CBC Endocrine: Watch for hyperglycemia. SSI for glycemic control if needed. Patient has been on oral prednisone therapy and we will initiate stress dose hydrocortisone during acute illness to avoid hemodynamic instability. Prophylaxis: PPI/SCDs. No heparin or Lovenox in view of severe thrombocytopenia and anemia. Patient appears to be declining rapidly over the last 6 months per family. I did discuss CODE STATUS and long-term goals of therapy. Patient has a living will, patient's at this time wishes for DNR CODE STATUS. Overall impression: Critically ill and deteriorating clinical condition despite aggressive hydration. Pain control is acceptable. Will stop stress dose steroids , narrow antibiotic coverage. Transfer to Hospice Care center. Derrek Wang MD Jul 11, 2017 11:10
--- NOTE | 2017-07-11 13:33 | PD.ONC.PN ---
Subjective Subjective Remarks Afebrile Objective Data Date Time Temp Pulse Resp B/P (MAP) Pulse Ox O2 Delivery O2 Flow Rate FiO2 07/11/17 12:00 98.0 100 17 101/65 (77) 99 07/11/17 12:00 100 07/11/17 10:00 101 07/11/17 08:00 101 07/11/17 08:00 97.8 101 16 106/69 (81) 100 07/11/17 07:40 100 Nasal Cannula 2.00 07/11/17 07:00 100 Nasal Cannula 2.00 07/11/17 06:00 105 07/11/17 04:00 98.1 112 26 110/77 (88) 100 07/11/17 04:00 112 07/11/17 02:00 115 07/11/17 00:00 97.6 104 15 122/69 (86) 99 07/11/17 00:00 104 07/10/17 22:00 93 07/10/17 20:46 Nasal Cannula 07/10/17 20:00 101 07/10/17 20:00 97.6 101 26 129/73 (91) 99 07/10/17 19:00 99 Nasal Cannula 2.00 07/10/17 18:00 108 07/10/17 16:00 97 07/10/17 16:00 97.8 102 30 126/73 (90) 96 07/10/17 14:00 95 07/11/17 07/11/17 07/11/17 07:00 15:00 23:00 Intake Total 1275 ml Balance 1275 ml Result Diagram: 07/10/1737 07/10/17 0837 Culture Results Microbiology Date/Time Source Procedure Growth Status 07/08/17 15:15 Blood Peripheral Aerobic Blood Culture - Preliminary NO GROWTH IN 3 DAYS Resulted 07/08/17 15:15 Blood Peripheral Anaerobic Blood Culture - Preliminary NO GROWTH IN 3 DAYS Resulted 07/08/17 15:00 Blood Peripheral Aerobic Blood Culture - Preliminary NO GROWTH IN 3 DAYS Resulted 07/08/17 15:00 Blood Peripheral Anaerobic Blood Culture - Preliminary NO GROWTH IN 3 DAYS Resulted 07/08/17 22:00 Urine Clean Catch Urine Culture - Final Escherichia Coli Complete Administered Medications Medications (Trade) Dose Ordered Sig/Nando Route PRN Reason Start Time Stop Time Status Last Admin Dose Admin Sodium Bicarbonate 150 meq/Dextrose 1,150 ml @ 100 mls/hr [id number] IV 07/08/17 17:00 07/11/17 03:53 Sodium Chloride (NS Flush) 2 ml BID IV FLUSH 07/08/17 21:00 07/11/17 09:00 Pantoprazole Sodium (Protonix Inj) 40 mg DAILY IV PUSH 07/08/17 17:00 07/11/17 09:00 Chlorhexidine Gluconate (Chlorhexidine 2% Cloth) 3 pack Taper DAILY@04 TOP 07/09/17 04:00 07/05/18 03:59 07/11/17 04:36 Senna/Docusate Sodium (Hannah-Colace) 1 tab BID PO 07/08/17 21:00 07/08/17 20:03 Norepinephrine Bitartrate 250 ml @ 7.5 mls/hr TITRATE PRN IV Blood pressure management 07/09/17 00:15 07/09/17 13:12 Ceftriaxone Sodium 1000 mg/ Sodium Chloride 100 ml @ 200 mls/hr Q24H IV 07/10/17 13:00 07/10/17 14:00 Morphine Sulfate (Morphine Inj) 4 mg Q3H PRN IV PUSH pain 6-10 07/10/17 14:30 07/10/17 14:59 Objective Remarks GENERAL: Well-nourished, well-developed patient. SKIN: Warm and dry. HEAD: Normocephalic. EYES: No scleral icterus. No injection or drainage. NECK: Supple, trachea midline. No JVD or lymphadenopathy. LYMPHATIC: No adenopathy. CARDIOVASCULAR: Regular rate and rhythm without murmurs. RESPIRATORY: Breath sounds equal bilaterally. No accessory muscle use. GASTROINTESTINAL: Abdomen soft, non-tender, nondistended. EXTREMITIES: No cyanosis, or edema. MUSCULOSKELETAL: Adequate muscle tone. NEUROLOGICAL: No obvious focal deficit. Awake, alert, and oriented x3. PSYCHIATRIC: Appropriate mood and affect; insight and judgment normal. Assessment/Plan Problem List: (1) widely metastatic prostate cancer Plan: 07/11/17: Pt will be discharged to Hospice which unfortunately is the best option given his widely metastatic prostate cancer with failure on multiple lines of chemo. -- PSA 2358 -- Has previously progressed on multiple lines of therapy -- Recommendation is for hospice however the patient was previously having a difficult time with this -- Myelosuppression could be from bone marrow infiltration from the prostate cancer Hx/Workup: Patient has a history of metastatic prostate cancer that is hormone refractory. He has had multiple hormonal manipulation along with radiation therapy for the prostate cancer. He has been on Taxotere and progressed and tried Jevtana under the care of Dr. Carney. Most recently his medical oncologist recommended hospice however the patient wanted to get a second opinion. She went to [facility] where they recommended mitoxantrone and he has had a total of 2 cycles the last being in April. He has not had further chemotherapy since that time due to myelosuppression. CT scan abdomen and pelvis on admission showed bilateral hydronephrosis, moderate on the left side and mild on the right side. It also showed extensive retroperitoneal lymphadenopathy, extensive iliac and right inguinal lymphadenopathy and widespread bony metastatic disease. CT scan also shows 4x2.7 cm pleural right lung mass and pericardial lymphadenopathy Assessment 72 y/o male admitted with shortness of breath; oncology consulted for widely metastatic prostate cancer Attending Statement not doing well PSA > 2,000 pt will be d/c to hospice care center. sign off Lucia Stubbs Jul 11, 2017 13:33 Ilya Bello MD Jul 11, 2017 15:05
--- NOTE | 2017-07-30 15:06 | HHI.DS ---
Discharge Summary Admission Date Jul 08, 2017 at 15:37 Discharge Date: Jul 11, 2017 Admitting Diagnosis SEPSIS, ANEMIA, THROMBOCYTOPENIA, ARF (1) widely metastatic prostate cancer Diagnosis: Principal Status: Acute (2) GI bleed ICD Code: K92.2 - Gastrointestinal hemorrhage, unspecified Diagnosis: Principal Status: Acute (3) Thrombocytopenia ICD Code: D69.6 - Thrombocytopenia, unspecified Diagnosis: Secondary Status: Acute (4) Metabolic acidosis ICD Code: E87.2 - Acidosis Diagnosis: Secondary Status: Acute Brief History HPI 71-year-old male with a medical history significant for metastatic prostate cancer who was brought to the ER via EMS with shortness of breath that started this morning. He reportedly has been having progressive fatigue over the last few months. Initially on arrival in the ER he was tachypneic with a systolic blood pressure of 88mm Hg. He was transfused 2 units PRBCs a few months ago by his oncologist who practices in [place]. Patient was evaluated in the ER following his arrival and was noted to have a hemoglobin of 6.7, lactic acid of 14.8 with metabolic acidosis and elevated BUN/creatinine. He received 1 L normal saline bolus in the ER and was ordered 2 units PRBCs as well as platelets and FFP which has still not been transfused. Patient was accepted for admission by critical care medicine service. When I evaluated the patient in the ER he was laying in the ER stretcher and appeared in no acute distress on nasal cannula maintaining O2 sat 100% on 2 L with a heart rate of 89 and blood pressure 130/63. He was confused and could not tell me if he was in the hospital and thought he was in [place] and did not know the year. History was obtained by discussion with patient's as well as his daughter at the bedside. He reportedly has had prostate cancer since 2799 and has undergone treatment including radiation and was also evaluated at [facility] and given some chemotherapy which she did not tolerate well and which resulted in him dropping his blood counts about 3 months ago. He recently followed up with his oncologist in [place] and and was informed regarding poor prognosis with probable life expectancy of 6 months or so. He was diagnosed with a left lower extremity DVT and has been on Eliquis for a few months. His has noticed some blood in the urine recently. Patient denies any fever or chills or abdominal pain currently. Denies any nausea vomiting or diarrhea. PFSH Past Medical History Cancer: Yes (metastatic prostate cancer) Implanted Vascular Access Dvce: Yes (right chest port) Social History Alcohol Use: No Tobacco Use: No (remote history) Substance Use: No Allergies-Medications Allergies-Medications (Allergen,Severity, Reaction): Coded Allergies: No Known Allergies (Unverified , 07/08/17) Reported Meds & Prescriptions Reported Meds & Active Scripts Active Reported Ondansetron (Ondansetron HCl) 8 Mg Tab 4 Mg PO TID Eliquis (Apixaban) 5 Mg Tab 5 Mg PO DAILY Prednisone 10 Mg Tab 10 Mg PO DAILY Oxycodone (Oxycodone HCl) 10 Mg Tab 10 Mg PO Q6H PRN ROS Review of Systems Except as stated in HPI: all other systems reviewed are Neg General / Constitutional: No: Fever, Chills HENT: No: Headaches Cardiovascular: Positive: Tachycardia, Dyspnea on exertion, No: Chest Pain or Discomfort Respiratory: Positive: Shortness of Breath Gastrointestinal: No: Nausea, Vomiting, Abdominal Pain Musculoskeletal: No: Myalgias Neurologic: Positive: Weakness, No: Dizziness, Syncope, Focal Abnormalities Significant Findings Severely debilitated state from metastatic prostate cancer. PE at Discharge Lungs: congested. Heart: Irreg Irreg Neuro: Weak, lethargic. Transfer Summary Deteriorating clinical condition from widely metastatic prostate cancer. Arrangements made for transfer to Hospice Care. Hospital Course 71-year-old male with a medical history significant for metastatic prostate cancer who was brought to the ER via EMS with shortness of breath that started this morning. He reportedly has been having progressive fatigue over the last few months. Initially on arrival in the ER he was tachypneic with a systolic blood pressure of 88mm Hg. He was transfused 2 units PRBCs a few months ago by his oncologist who practices in [place]. Patient was evaluated in the ER following his arrival and was noted to have a hemoglobin of 6.7, lactic acid of 14.8 with metabolic acidosis and elevated BUN/creatinine. He received 1 L normal saline bolus in the ER and was ordered 2 units PRBCs as well as platelets and FFP which has still not been transfused. Patient was accepted for admission by critical care medicine service. When I evaluated the patient in the ER he was laying in the ER stretcher and appeared in no acute distress on nasal cannula maintaining O2 sat 100% on 2 L with a heart rate of 89 and blood pressure 130/63. He was confused and could not tell me if he was in the hospital and thought he was in [place] and did not know the year. History was obtained by discussion with patient's as well as his daughter at the bedside. He reportedly has had prostate cancer since 1 and has undergone treatment including radiation and was also evaluated at [facility] and given some chemotherapy which she did not tolerate well and which resulted in him dropping his blood counts about 3 months ago. He recently followed up with his oncologist in [place] and and was informed regarding poor prognosis with probable life expectancy of 6 months or so. He was diagnosed with a left lower extremity DVT and has been on Eliquis for a few months. His has noticed some blood in the urine recently. Patient denies any fever or chills or abdominal pain currently. Denies any nausea vomiting or diarrhea. 07/09: Has not voided yet. Hgb 8.4. Lactic acidosis improving. Critically ill. Less responsive today. Family considering transition to [facility]. 07/10: Urine C&S noted, will narrow to ceftriaxone alone. No improvement in general condition. and patient discussing care plan with Palliative Care Service. 07/11: Will transfer to Hospice Service/Care Center. Pt Condition on Discharge: Deteriorating Discharge Disposition: Hospice/Med Facility Discharge Instructions DIET: Follow Instructions for: As Tolerated, No Restrictions Activities you can perform: Regular-No Restrictions Derrek Wang MD Jul 30, 2017 15:06
== END 2017-07-11 13:31 | disposition hospice, inpatient (51) | DRG 871 ==
LOC: NEPE 13:05 → NEDA 15:37 → N03B 18:09
PROVIDERS: ADMIT Internal Medicine Critical Care Medicine; ATTEND Internal Medicine Critical Care Medicine
PROC: 30233N1 Transfusion of Nonautologous Red Blood Cells into Peripheral Vein, Percutaneous Approach (ICD-10-PCS; principal; 2017-07-08)
PROC: 30233K1 Transfusion of Nonautologous Frozen Plasma into Peripheral Vein, Percutaneous Approach (ICD-10-PCS; 2017-07-08)
PROC: 30233R1 Transfusion of Nonautologous Platelets into Peripheral Vein, Percutaneous Approach (ICD-10-PCS; 2017-07-08)
DX: A41.9 Sepsis, unspecified organism (principal); R65.21 Severe sepsis with septic shock; N17.9 Acute kidney failure, unspecified; E87.2 Acidosis; R64 Cachexia; C79.51 Secondary malignant neoplasm of bone; D69.6 Thrombocytopenia, unspecified; N13.30 Unspecified hydronephrosis; N39.0 Urinary tract infection, site not specified; K92.1 Melena; C61 Malignant neoplasm of prostate; J44.9 Chronic obstructive pulmonary disease, unspecified; D64.9 Anemia, unspecified; Z92.3 Personal history of irradiation; Z87.891 Personal history of nicotine dependence; Z86.718 Personal history of other venous thrombosis and embolism; R33.9 Retention of urine, unspecified; Z66 Do not resuscitate; Z85.048 Personal history of other malignant neoplasm of rectum, rectosigmoid junction, and anus; Z99.3 Dependence on wheelchair
CPT/HCPCS: 36430; 36600; 70450; 71010; 74176; 80048; 80053; 81001; 82805; 83605; 83735; 83880; 84100; 84153; 84155; 85007; 85027; 85610; 85730; 86850; 86900; 86901; 86920; 86927; 87040; 87077; 87086; 87186; 87641; 93005; 96361; 96365; 96368; C9113; J0610; J0696; J1720; J2270; J2543; J3370; J7030; J7040; J7050; J7070; P9016; P9017; P9035